=== PATIENT | male | born 1940 | race Caucasian/White ===

== ENCOUNTER 2018-03-10 08:56 | Outpatient (CLI) | payer MEDICARE, OTHER, SELFPAY ==
[2018-03-10 10:14] LABS: Hemoglobin A1C 7.1 % (4.5-6.2)
== END 2018-03-10 09:16 ==
DX: E11.9 Type 2 diabetes mellitus without complications (principal)
CPT/HCPCS: 36415; 83036

== ENCOUNTER 2018-06-09 08:39 | Outpatient (CLI) | payer MEDICARE, OTHER, SELFPAY ==
[2018-06-09 11:26] LABS: Anion Gap 9.3 mmol/L (3-11); BUN 22 mg/dL (7-18); CO2 26.7 mmol/L (21.0-32.0); CREATININE 1.09 mg/dL (0.70-1.30); Calcium 9.2 mg/dL (8.5-10.1); Chloride 102 mmol/L (98-107); Glucose 120 mg/dL (70-100); Potassium 4.2 mmol/L (3.5-5.1); Sodium 138 mmol/L (136-145)
[2018-06-09 11:37] LABS: Hemoglobin A1C 6.7 % (4.5-6.2)
== END 2018-06-09 08:59 ==
DX: E11.9 Type 2 diabetes mellitus without complications (principal); Z87.891 Personal history of nicotine dependence
CPT/HCPCS: 36415; 80048; 83036

== ENCOUNTER 2018-10-25 13:39 | Outpatient (CLI) | payer MEDICARE, OTHER, SELFPAY ==
--- NOTE | 2018-10-25 12:00 | DI.RAD_ITS ---
SYMPTOM/DIAGNOSIS: RT HIP PAIN, M25.551 RIGHT HIP AND PELVIS: Two views were obtained. The cartilaginous joint spaces of both hips appear fairly well maintained. Minimal hypertrophic spurring of the acetabuli noted bilaterally, not unusual in this age group. No additional abnormality is seen involving the hips. Note is made of rounded high density focus measuring about 13 mm. in diameter projected over the right iliac wing and similar high density rounded focuses projected over the left sacral ala. These are nonspecific findings and may lie in bone or overlying soft tissues. If in bone, they are most likely to represent bone islands. The possibility of metastatic disease not absolutely excluded. If clinically indicated, additional evaluation with pelvic CT may be considered to evaluate the location and etiology of these nodular radiodensities.
== END 2018-10-25 13:59 ==
DX: M25.551 Pain in right hip (principal); R93.7 Abnormal findings on diagnostic imaging of other parts of musculoskeletal system
CPT/HCPCS: 73502

== ENCOUNTER 2018-11-24 01:21 | Outpatient (CLI) | payer MEDICARE, OTHER, SELFPAY ==
[2018-11-24] MEDS: Omnipaque 350 MG/ML 100 ML BTL IJ (13:59)
[2018-11-24] MEDS: Normal Saline Flush 10 ML SYR IVP (14:01)
--- NOTE | 2018-11-24 14:01 | DI.CT_ITS ---
EXAM: CT ABDOMEN PELVIS W CLINICAL HISTORY: Rt hip pain, M25.551, F/U Hip XR high density focus - R/O Metastasis. TECHNIQUE: The examination was carried out according to the usual protocol with intravenous administ ration of 100 mL of Omnipaque 350. COMPARISON: Rt hip x-ray 10/25/18 FINDINGS: Regions of dependent atelectasis are noted in the lung bases. The liver appears intact. The patient is status post cholecystectomy. The pancreas and spleen are unremarkable. The kidneys are unremarka ble. The adrenals are intact. There is no evidence of bowel obstruction. There is no evidence of an acute appendix. Scattered diverticula are demonstrated in the sigmoid colon. There is no evidence of diverticulitis. There is no evidence of free fluid or free air in the intraperitoneal space. The yasir dder is intact. Prostate is enlarged. There is no evidence of an aortic aneurysm. Small regions of sc lerosis are noted involving the right ilium and left 1st sacral ala. There are degenerative changes i nvolving the spine. IMPRESSION: Small regions of sclerosis involving the right ilium and left hemisacrum are identified and likely re present bone islands. If there is any further specific clinical question regarding the possibility of metastatic disease in this patient, then further assessment with a radionuclide bone scan is recomme nded.
== END 2018-11-24 01:41 ==
DX: M25.551 Pain in right hip (principal); J98.11 Atelectasis; M89.8X8 Other specified disorders of bone, other site; N40.0 Benign prostatic hyperplasia without lower urinary tract symptoms
CPT/HCPCS: 74177; J3490

== ENCOUNTER 2019-07-01 03:45 | Outpatient (CLI) | payer MEDICARE, OTHER, SELFPAY ==
--- NOTE | 2019-07-01 07:30 | DI.US_ITS ---
EXAM: US CAROTID CLINICAL HISTORY: lightheadedness,CHANGE IN VISION,H53.9. TECHNIQUE: Ultrasound carotids performed using grayscale, color-flow, and spectral Doppler imaging. COMPARISON: No exams were available for comparison FINDINGS: On the right, there is mild calcific plaque seen in the carotid bulb and proximal internal and football pad repairer al carotid arteries. No hemodynamically significant velocity elevation is seen on the right. The ri ght vertebral artery is antegrade. On the left, there is moderate calcific plaque seen in the carotid bulb and proximal internal and ext ernal carotid arteries. Velocity elevations are seen in the internal carotid artery consistent with a 50-69 percent left internal carotid artery stenosis. The left vertebral artery is antegrade. IMPRESSION: 50-69 percent left internal carotid artery stenosis. No hemodynamically significant velocity elevati ons are seen on the right. DATA REPOSITORY:
== END 2019-07-01 04:05 ==
DX: R42 Dizziness and giddiness (principal); H53.8 Other visual disturbances; I65.22 Occlusion and stenosis of left carotid artery
CPT/HCPCS: 93880

== ENCOUNTER 2020-02-14 22:54 | Outpatient (REF) | payer MEDICARE, OTHER, SELFPAY ==
[2020-02-14 22:04] LABS: Calculated LDL 108 mg/dL (<100); Cholesterol 190 mg/dL (<200); HDL Cholesterol 57 mg/dL (40-60); Triglyceride 127 mg/dL (<150)
[2020-02-14 22:05] LABS: ALT 33 U/L (16-63); AST 19 U/L (15-37); Alkaline Phosphatase 59 U/L (46-116); Anion Gap 9.3 mmol/L (3-11); BUN 26 mg/dL (7-18); Bilirubin, Total 0.7 mg/dL (0.2-1.0); CO2 26.7 mmol/L (21.0-32.0); Calcium 9.2 mg/dL (8.5-10.1); Chloride 104 mmol/L (98-107); Glucose 116 mg/dL (74-106); Potassium 4.5 mmol/L (3.5-5.1); Sodium 140 mmol/L (136-145); Total Protein 6.7 g/dL (6.4-8.2)
[2020-02-14 22:11] LABS: Hemoglobin A1C 6.8 % (<5.7)
[2020-02-14 22:18] LABS: ESR 5 mm/hr (1-20)
== END 2020-02-14 23:14 ==
LOC: LBN 22:54
PROVIDERS: Physician Assistant
DX: E11.9 Type 2 diabetes mellitus without complications (principal); E78.5 Hyperlipidemia, unspecified; R00.1 Bradycardia, unspecified; I65.22 Occlusion and stenosis of left carotid artery; R21 Rash and other nonspecific skin eruption
CPT/HCPCS: 80053; 80061; 85652; 83036

== ENCOUNTER 2020-04-26 16:19 | Outpatient (CLI) | payer MEDICARE, OTHER, SELFPAY ==
--- NOTE | 2020-04-26 16:15 | RT.EKG_ITS ---
APPROVED REPORT Exam: Resting ECG Patient Location: O HR:71 bpm ECG Measurements Heart Rate 71 AXIS HI 149 P 67 QRSd 91 QRS 56 QT 402 T 55 QTc 439 Conclusion Sinus rhythm...normal P axis, V-rate 60- 99 Ventricular bigeminy...bigeminy string>4 w/ V complexes Low voltage, extremity leads...all extremity leads <0.5mV
== END 2020-04-26 16:20 | disposition home or self-care (01) ==
LOC: DI.CM 16:20
PROVIDERS: Visit Provider Nurse Practitioner Family
DX: R00.1 Bradycardia, unspecified (principal); R42 Dizziness and giddiness; F17.220 Nicotine dependence, chewing tobacco, uncomplicated

== ENCOUNTER 2020-04-26 16:59 | Emergency (ER) | payer MEDICARE, OTHER, SELFPAY ==
[2020-04-26] VITALS (21 sets, daily range): BP systolic 137–193; BP diastolic 59–102; PULSE 40–84; RESP 11–25; TEMP 36.4–36.6; O2SAT 95–98
--- NOTE | 2020-04-26 17:00 | RT.EKG_ITS ---
APPROVED REPORT Exam: Resting ECG Patient Location: E HR:73 bpm ECG Measurements Heart Rate 73 AXIS NE 151 P 72 QRSd 89 QRS 63 QT 379 T 64 QTc 412 Conclusion Sinus rhythm...normal P axis, V-rate 60- 99 Atrial premature complex...SV complex w/ short R-R interval Low voltage, extremity leads...all extremity leads <0.5mV
[2020-04-26 17:38] LABS: Abs Immature Grans 0.02 10^3/uL (0.0-0.06); Absolute Basophil Count 0.05 10^3/uL (0.0-0.2); Absolute Eosinophil Count 0.17 10^3/uL (0.0-0.7); Absolute Lymphocyte Count 1.36 10^3/uL (1.2-3.4); Absolute Monocyte Count 0.85 10^3/uL (0.1-0.8); Absolute Neutrophil Count 4.75 10^3/uL (1.2-6.7); Basophils % 0.7; Eosinophils % 2.4; HCT 46.5 % (40.0-50.0); HGB 15.3 g/dL (13.5-17.5); Immature Grans % 0.3; Lymphocytes % 18.9; MCH 31.1 pg (27.0-33.0); MCHC 32.9 % (32.0-36.0); MCV 94.5 fL (80-95); MPV 9.5 fL (8.0-11.0); Monocytes % 11.8; Neutrophils % 65.9; Nucleated RBC 0 %; Platelet Count 273 10^3/uL (130-400); RBC 4.92 10^6/uL (4.36-5.78); RDW 13.3 % (11.8-14.1); RDW-SD 46.9 fL
[2020-04-26 17:57] LABS: ALT 30 U/L (16-63); AST 18 U/L (15-37); Alkaline Phosphatase 73 U/L (46-116); Anion Gap 9.9 mmol/L (3-11); BUN 22 mg/dL (7-18); CO2 27.1 mmol/L (21.0-32.0); CREATININE 1.1 mg/dL (0.70-1.30); Calcium 9.2 mg/dL (8.5-10.1); Chloride 101 mmol/L (98-107); Glucose 139 mg/dL (74-106); Magnesium 2.3 mg/dL (1.8-2.4); Sodium 138 mmol/L (136-145); Total Protein 7.5 g/dL (6.4-8.2)
[2020-04-26 18:00] LABS: Troponin I < 0.05 ng/mL (<0.06)
[2020-04-26] MEDS: Lactated Ringers 500 ML IV (18:10)
--- NOTE | 2020-04-26 18:12 | ED.GENADUL_ITS ---
Discharge Plan Disposition Patient Disposition: HOME Condition: Stable Discharge Details Clinical Impression: Lightheadedness, Elevated blood pressure reading Primary Care Provider: Melany Snyder ED Provider: Rod Luna Home Meds and New Rx's Prescriptions: Continued metoprolol tartrate 25 mg tablet 12.5 mg PO BID Qty: 90 RF: 4 Shingrix (PF) 50 mcg/0.5 mL suspension for reconstitution 0.5 ml IM ONCE Qty: 1 RF: 0 triamcinolone acetonide 0.5 % ointment 1 applic TP BID Qty: 15 RF: 1 acetaminophen 500 mg capsule 1,000 mg PO TID PRN PRN (Reason: pain) Qty: 90 RF: 0 propranolol 10 MG tablet 10 mg PO PRN RF: 0 aspirin [Aspirin Low-Strength] 81 MG tablet,chewable 81 mg PO DAILY RF: 0 atorvastatin [Lipitor] 10 mg tablet 10 mg PO HS Qty: 90 RF: 4 Discharge Instructions Instructions: Lightheadedness (ED) Additional Instructions: Please take your blood pressure medication as prescribed. Please drink plenty of fluid to stay hydrated. Allow for plenty of rest. Take off the next couple days and rest. Please follow-up with your primary care physician and records clerk. Call for an appointment. Return to the emergency department immediately for any worsening or new concerning symptoms. Referrals: Melany Snyder, PRODUCT MARKETING INTERN [Primary Care Provider] - Medical Decision Making 615p ??79-year-old male here for days status post second COVID-19 vaccine with lightheadedness that has persisted since this morning. Patient is neurologically intact. Patient notes he has been drinking less fluid than normal and does have dry mucous membranes. I suspect hypovolemia is contributing to his symptoms. I will give him a fluid bolus of LR 500 mL and plan to reassess. Considered arrhythmia. Screening ECG was reviewed and interpreted by me: Sinus rhythm 73 bpm, QTc 412, TX interval 151, nondiagnostic. I did interpret stepdown nurse rhythm strip in the room and patient does have intermittent bigeminy. Ectopic beats are conducted with pulse. Patient is hypertensive on arrival. He is on beta-tanya. Labs reviewed to assess for renal dysfunction or electrolyte abnormalities as well as anemia. Labs nondiagnostic. 850p --patient reassessed: Blood pressure improved. Feeling much better after metoprolol and IV fluid. Patient ambulated around the department without difficulty and with no return of lightheadedness. Plan for discharge with outpatient follow-up with PCP and cardiology. Disposition decision was made weighing the risks and benefits of hospitalization versus outpatient treatment, the risk for further decompensation, and the patient's wishes. The patient was stable and requested discharge. Prior to discharge, my usual and customary return precautions were reviewed with the patient - this included follow-up instructions and reason to return to the emergency department if condition worsens, does not improve as expected, or other new concerns arise. HPI General Mode of arrival: ambulatory . Date/Time Provider Initiated Documentation: 04/26/20 17:28 . Limitations to Documentation: no limitations . Information obtained by: patient . HPI Narrative: 79-year-old male with history of bradycardia, coronary artery disease, diabetes, presents with chief complaint of dizziness. 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 This occurred today around 930 but has persisted. Dizziness was severe around 10 AM. It is still present but now mild. Dizziness described as lightheadedness. He did feel like he was going to lose consciousness this morning. He does not have sensation of vertigo. He denies visual change. No numbness or weakness. He has no nausea or vomiting. No chest pain or shortness of breath. He does note that he received second Covid shot a few days ago. He also notes he has not been drinking as much fluid recently. Related Data Home Medications Medication Instructions Recorded Confirmed aspirin [Aspirin Low-Strength] 81 mg PO DAILY tab-cap 07/28/12 04/26/20 propranolol 10 mg PO PRN 07/28/12 04/26/20 triamcinolone acetonide 0.5 % 1 applic TP BID #15 gm 10/05/18 04/26/20 topical ointment acetaminophen 500 mg capsule 1,000 mg PO TID PRN PRN #90 cap 10/25/18 04/26/20 metoprolol tartrate 25 mg tablet 12.5 mg PO BID #90 tab-cap 09/19/19 04/26/20 varicella-zoster glycoE vacc-[id number] 0.5 ml IM ONCE #1 each 09/19/19 03/19/20 adj(PF) 50 mcg/0.5 mL IM susp, kit atorvastatin 10 mg tablet 10 mg PO HS #90 tab-cap 04/21/20 04/26/20 Previous Rx's Medication Instructions Recorded triamcinolone acetonide 0.5 % 1 applic TP BID #15 gm 10/05/18 topical ointment acetaminophen 500 mg capsule 1,000 mg PO TID PRN PRN #90 cap 10/25/18 metoprolol tartrate 25 mg tablet 12.5 mg PO BID #90 tab-cap 09/19/19 varicella-zoster glycoE vacc-[id number] 0.5 ml IM ONCE #1 each 09/19/19 adj(PF) 50 mcg/0.5 mL IM susp, kit atorvastatin 10 mg tablet 10 mg PO HS #90 tab-cap 04/21/20 Allergies Allergy/AdvReac Type Severity Reaction Status Date / Time No Known Allergies Allergy Verified 04/26/20 16:01 General Stated Complaint: Dizzy/Sync BRIAN: 2 Review of Systems Constitutional Constitutional: Denies body ache(s), Denies fatigue, Denies fever(s) and Reports headache(s) (Mild) Eyes Eyes: Denies loss of vision ENT Ears, Nose, Mouth, and Throat: Denies vertigo, Reports dizziness and Reports headache(s) (Mild) Cardiovascular Cardiovascular: Denies chest pain, Denies syncope and Denies dyspnea Respiratory Respiratory: Denies dyspnea Musculoskeletal Musculoskeletal: Denies abnormal gait and Denies tingling Neurologic Neurologic: Denies abnormal speech, Denies abnormal gait, Denies confusion, Denies vertigo, Reports dizziness, Denies syncope, Reports headache(s) (Mild), Denies lack of coordination, Denies loss of vision, Denies sensory deficit and Denies tingling Psychiatric Psychiatric: Denies confusion Endocrine Endocrine: Denies fatigue [facility] Medical History 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 Carotid artery disease (12/14/13) right CEA TIA 06/2019 LEFT artery stenosis w/vision changes Chemical dermatitis Dermatitis Dermatitis associated with moisture (09/14/17) Diabetes mellitus (02/02/12) Hearing loss Hip pain, right History of tobacco use Chews daily, occasional cigar Hyperlipidemia associated with type 2 diabetes mellitus (07/10/15) Migraine Peptic ulcer H/O perforated ulcer; secondary to ASA Vision disorder Surgical History Fracture, Open Treatment LEFT ANKLE Family History Mother , 79 Diabetes Essential hypertension Cancer Stroke Father , 79 Cancer Sister , 84 Cancer Diabetes Sister , 72 Heart disease Cancer Social History Smoking/Tobacco Use Status: Current-Occasional Smokeless tobacco user: dissolvable tobacco Quit status: has quit before Smoking risk assessment performed?: Yes Alcohol Intake: former Drug use: Never Substance use type: does not use Counseling given: No Counseling provided: none Caregiver/Support person: No Household members: spouse Housing: house Communication Needs: Hard of Hearing Pets and animals: Yes Pets and animals: cat(s) Sexually active: No Do you think of yourself as: straight/heterosexual Current gender identity: female What is your relationship status?: How often do you talk on the phone with friends or family?: once per week How often do you get together with friends or relatives?: decline to answer How often do you attend sikhism or hoahaoism services?: decline to answer Do you belong to any clubs or organized social groups?: decline to answer Panel score (0-1 are the most socially isolated patients): 1 What type of physical activity do you participate in: running Duration: > 90 minutes/day Frequency: 5-6 times per week Maryse/Roman Catholic: Restorationist Special maryse needs: No Seatbelt use: sometimes Helmet use: No Drive intox or ride w/intox ems driver: No Exam Const General: cooperative and no acute distress HENMT Mouth: moist mucous membranes Eyes Conjunctivae: normal conjunctivae Sclera: normal sclerae Neck Neck: trachea midline and supple Resp Auscultation: clear to auscultation bilaterally, no rales, no rhonchi and no wheezes Cardio Jugular venous pressure: no JVD Rate: regular rate and not tachycardic Rhythm: regular rhythm GI Palpation: soft, not firm, no guarding, no masses, not rigid and nontender Skin General skin exam: no rashes or lesions noted Neuro General: patient alert, patient awake, patient oriented x3 and tone normal Cranial Nerves: CN's II-XI intact bilaterally Cognition: normal cognition Speech: speech normal Motor: muscle tone normal throughout, strength 5/5 throughout, no movement abnormalities noted and no pronator drift noted Sensory Exam: no sensory deficits noted Coordination: [id number] test normal and Romberg test normal Extrem General: no edema Psych Appearance: grossly normal Mental Status: mental status grossly normal Speech and Movement: speech and movement normal Course Vital Signs Vital signs: Vital Signs Temperature 36.6 C 04/26/20 17:05 Pulse 70 04/26/20 17:05 Respiratory Rate 17 04/26/20 17:05 Blood Pressure 193/97 H 04/26/20 17:05 Pulse Oximetry 98 04/26/20 17:05 Temperature 36.6 C 04/26/20 17:05 Temperature Source Temporal Artery Scan 04/26/20 17:05 Pulse 70 04/26/20 17:05 Respiratory Rate 15 04/26/20 17:13 Respiratory Effort Non-Labored 04/26/20 17:13 Respiratory Depth Normal 04/26/20 17:13 Respiratory Pattern Normal 04/26/20 17:13 Blood Pressure 193/97 H 04/26/20 17:05 Blood Pressure Position Supine 04/26/20 17:05 Pulse Oximetry 98 04/26/20 17:05 Oxygen Delivery Method Room Air 04/26/20 17:05 Oxygen Flow Rate 0 04/26/20 17:05 Pain Level 5 04/26/20 17:05 Lab/Test Results Lab/Test Results: Laboratory Tests Range/Units 04/26/20 04/26/20 17:10 17:10 WBC (4.4-10.8) 10^3/uL 7.20 RBC (4.36-5.78) 10^6/uL 4.92 Hgb (13.5-17.5) g/dL 15.3 Hct (40.0-50.0) % 46.5 MCV (80-95) fL 94.5 MCH (27.0-33.0) pg 31.1 MCHC (32.0-36.0) % 32.9 RDW (11.8-14.1) % 13.3 Plt Count (130-400) 10^3/uL 273 MPV (8.0-11.0) fL 9.5 Immature Gran % 0.3 Neutrophils % 65.9 Lymphocytes % 18.9 Monocytes % 11.8 Eosinophils % 2.4 Basophils % 0.7 Nucleated RBC % % 0 Absolute Neutrophils (1.2-6.7) 10^3/uL 4.75 Absolute Lymphocytes (1.2-3.4) 10^3/uL 1.36 Absolute Monocytes (0.1-0.8) 10^3/uL 0.85 H Absolute Eosinophils (0.0-0.7) 10^3/uL 0.17 Absolute Basophils (0.0-0.2) 10^3/uL 0.05 Sodium (136-145) mmol/L 138 Potassium (3.5-5.1) mmol/L 4.0 Chloride (98-107) mmol/L 101 Carbon Dioxide (21.0-32.0) mmol/L 27.1 Anion Gap (3-11) mmol/L 9.9 BUN (7-18) mg/dL 22 H Creatinine (0.70-1.30) mg/dL 1.1 Estimated GFR/1.73 m2 (mL/min/1.73m2) >= 60.00 Glucose (74-106) mg/dL 139 H Calcium (8.5-10.1) mg/dL 9.2 Magnesium (1.8-2.4) mg/dL 2.3 Total Bilirubin (0.2-1.0) mg/dL 1.0 AST (15-37) U/L 18 ALT (16-63) U/L 30 Alkaline Phosphatase (46-116) U/L 73 Troponin I (<0.06) ng/mL < 0.05 Total Protein (6.4-8.2) g/dL 7.5 Albumin (3.4-5.0) g/dL 4.0
[2020-04-26] MEDS: Metoprolol 12.5 MG TAB PO (18:35)
[2020-04-26 18:43] LABS: Bilirubin Negative (Negative); Blood Trace-intact (Negative); Clarity Clear (Clear); Glucose Negative (Negative); Ketones Negative (Negative); Leukocyte Esterase Negative (Negative); Nitrite Negative (Negative); Specific Gravity 1.025 (1.005-1.025); Urobilinogen 0.2 EU/dL (Up TO 0.2); pH 5.5 (5-8)
[2020-04-26 18:55] LABS: Bacteria Negative HPF (Negative); C & S Indicated? No; Casts Negative LPF (Negative); Crystals Negative HPF (Negative); Epithelial Cells Rare HPF (Negative); Mucus Negative (Negative); RBC 0-2 HPF (0-2); WBC 0-2 HPF (0-5)
[2020-04-26 20:58] LABS: Troponin I < 0.05 ng/mL (<0.06)
== END 2020-04-26 20:50 | disposition home or self-care (01) ==
PROVIDERS: Emergency Provider Student in an Organized Health Care Education/Training Program
DX: R42 Dizziness and giddiness (principal); E86.1 Hypovolemia; I10 Essential (primary) hypertension
CPT/HCPCS: 36415; 80053; 93005; 96360; 99284; 81003; 81015; 83735; 84484; 85025; 93010; 99285; J3490

== ENCOUNTER 2020-04-30 09:19 | Outpatient (RCR) | payer MEDICARE, OTHER, SELFPAY ==
--- NOTE | 2020-04-30 13:00 | HOLTER_ITS ---
APPROVED REPORT Exam Type: HOLTER MONITOR APPLICATION Reason for Test: lightheadedness and ECG recently jodie/ chauncey Patient Location: O Conclusion This was a 48-hour Holter monitor Predominant rhythm was sinus with an average heart rate of 62. Minimum was 48, maximum 106 There were occasional ventricular ectopic beats, rare couplets. PVCs totaled 4% of total beats There were rare atrial premature beats. There was one 9 beat self-limited atrial run There was no atrial fibrillation, no high-grade AV block, no pauses greater than 3 seconds
== END 2020-05-16 23:59 | disposition home or self-care (01) ==
LOC: RT 09:19
PROVIDERS: Visit Provider Physician Assistant
DX: R42 Dizziness and giddiness (principal); R94.31 Abnormal electrocardiogram [ECG] [EKG]; I49.8 Other specified cardiac arrhythmias
CPT/HCPCS: 93227; 93225; 93226

== ENCOUNTER → 2020-06-01 09:12 | Outpatient (BNVA) | payer MEDICARE, OTHER, SELFPAY | PROVIDERS: Visit Provider Internal Medicine Cardiovascular Disease | DX: I65.22 Occlusion and stenosis of left carotid artery (principal); E11.69 Type 2 diabetes mellitus with other specified complication; E78.5 Hyperlipidemia, unspecified; I10 Essential (primary) hypertension | CPT/HCPCS: 99203; 99213 ==

== ENCOUNTER 2020-09-21 11:35 | Outpatient (CLI) | payer MEDICARE, OTHER, SELFPAY ==
[2020-09-21 13:08] LABS: ALT 25 U/L (16-63); AST 18 U/L (15-37); Alkaline Phosphatase 58 U/L (46-116); Anion Gap 9.9 mmol/L (3-11); BUN 20 mg/dL (7-18); Bilirubin, Total 1.2 mg/dL (0.2-1.0); CO2 26.1 mmol/L (21.0-32.0); Calcium 9.1 mg/dL (8.5-10.1); Chloride 104 mmol/L (98-107); Glucose 119 mg/dL (74-106); Potassium 4.3 mmol/L (3.5-5.1); Sodium 140 mmol/L (136-145); Total Protein 6.6 g/dL (6.4-8.2)
[2020-09-21 13:13] LABS: Hemoglobin A1C 7.4 % (<5.7)
== END 2020-09-21 11:36 | disposition home or self-care (01) ==
LOC: LOS 11:41
DX: E11.69 Type 2 diabetes mellitus with other specified complication (principal); E78.5 Hyperlipidemia, unspecified
CPT/HCPCS: 36415; 80053; 83036

== ENCOUNTER → 2021-03-05 15:46 | Outpatient (CLI) | payer MEDICARE, OTHER, SELFPAY ==
--- NOTE | 2021-03-05 12:15 | DI.RAD_ITS ---
Exam(s) XR RIBS LT W PA LAT CHEST EXAM: XR RIBS LT W PA LAT CHEST CLINICAL HISTORY: rib pain and incr pain w/a deep breath post fall R07.81 PLEURODYNIA. TECHNIQUE: 2D digital imaging was performed. COMPARISON: No exams were available for comparison FINDINGS: Chest x-ray: Heart size normal. Mediastinum not widened. No infiltrates in the right lung. In the left upper lobe there is a nodular density measuring 3 by 1.6 cm, noncalcified. No pleural effusions Left rib cage: There are multiple healing rib fractures. However, there also appear to be a fracture of the lateral aspect the left 6 rib and possibly 7th rib no pneumothorax. IMPRESSION: Left rib fractures old and new, as described above There is a 3 x 1.6 cm noncalcified nodule in the left upper lobe. Recommend follow-up CT scan. DATA REPOSITORY: RADIATION DOSE DELIVERED:
== END ==
DX: R07.81 Pleurodynia (principal); W19.XXXA Unspecified fall, initial encounter; S22.42XA Multiple fractures of ribs, left side, initial encounter for closed fracture
CPT/HCPCS: 71046; 71100

== ENCOUNTER 2021-03-20 00:55 | Outpatient (CLI) | payer MEDICARE, OTHER, SELFPAY ==
--- NOTE | 2021-03-20 08:00 | DI.CT_ITS ---
Exam(s) CT CHEST W EXAM: CT CHEST W CLINICAL HISTORY: 3 x 1.6 cm noncalcified nodule in the Arcenio,R91.1 TECHNIQUE: Imaging Protocol: Axial computed tomography images with coronal and sagittal reformatted images were created and reviewed CONTRAST MATERIAL: Intravenous: Omnipaque 350 Contrast volume:70 ml. COMPARISON: CR XR RIBS LT W PA LAT CHEST from 03/05/2021 FINDINGS: Tracheobronchial tree: No bronchiectasis or mucous plugging. Mediastinum and Rashmi: No dominant adenopathy or fluid collection. Pulmonary parenchyma: No consolidation or dominant measurable mass. Pleura: No effusion or pneumothorax. Heart: The heart is not dilated. coronary artery calcifications are seen. Aorta: Thoracic aorta non-dilated. Upper abdomen: Status post cholecystectomy. Lymph nodes: Within normal limits. Bones: Old left upper rib deformities which likely account for the perceived density on recent chest x-ray. Subacute appearing fracture of the anterior 5th through 7th ribs. Flowing osteophytes are no lizzy in the thoracic spine. Soft tissues: Unremarkable. IMPRESSION: Old left upper rib fractures including deformity of the anterior aspect of the 1st rib account for de nsity on recent chest x-ray. There is no evidence of mass. RADIATION DOSE DELIVERED: 481.71mGy.cm Total DLP DATA REPOSITORY: All CT scans at this facility are submitted to the National Radiology Data Registry (NRDR) Dose Index Registry (DIR) with the [employer] (A[employer]). RADIATION OPTIMIZATION: All CT scans at this facility use at least one of these dose optimization te chniques: automated exposure control; mA and/or kV adjustment per patient size (includes targeted exa ms where dose is matched to clinical indication); or iterative reconstruction.
[2021-03-20 14:05] LABS: ALT 24 U/L (16-63); AST 19 U/L (15-37); Albumin 4.1 g/dL (3.4-5.0); Alkaline Phosphatase 94 U/L (46-116); Anion Gap 6.2 mmol/L (3-11); BUN 22 mg/dL (7-18); Bilirubin, Total 0.9 mg/dL (0.2-1.0); CO2 29.8 mmol/L (21.0-32.0); CREATININE 1.2 mg/dL (0.70-1.30); Calcium 9.1 mg/dL (8.5-10.1); Chloride 101 mmol/L (98-107); Estimated GFR 57.96 (mL/min/1.73m2); Glucose 139 mg/dL (74-106); Potassium 3.9 mmol/L (3.5-5.1); Sodium 137 mmol/L (136-145); Total Protein 7.4 g/dL (6.4-8.2)
[2021-03-20] MEDS: Omnipaque 350 MG/ML 100 ML BTL IJ (14:47)
== END 2021-03-20 01:15 ==
DX: R91.1 Solitary pulmonary nodule (principal); R07.81 Pleurodynia; M95.4 Acquired deformity of chest and rib; Z87.81 Personal history of (healed) traumatic fracture
CPT/HCPCS: 80053; 71260; J3490

== ENCOUNTER 2021-09-17 14:45 | Emergency (ER) | payer MEDICARE, OTHER, SELFPAY ==
[2021-09-17 14:52] VITALS: BP 183/78; PULSE 65; RESP 16; TEMP 36.7; O2SAT 98
--- NOTE | 2021-09-17 15:42 | W.ED.GENAD ---
Discharge Plan Disposition Patient Disposition: HOME Condition: Stable Discharge Details Clinical Impression: Radiculopathy of arm, Chronic pain in right shoulder, Paresthesias in right hand Primary Care Provider: Melany Snyder ED Provider: Michelle Ferris Home Meds and New Rx's Prescriptions: Continued Shingrix (PF) 50 mcg/0.5 mL suspension for reconstitution 0.5 ml IM ONCE Qty: 1 0RF Rx Instructions: as a single dose triamcinolone acetonide 0.5 % ointment 1 applic TP BID Qty: 15 1RF Rx Instructions: Apply thin layer to bilateral hand rash two times per day. acetaminophen 500 mg capsule 1,000 mg PO TID PRN PRN (Reason: pain) Qty: 90 0RF propranolol 10 MG tablet 10 mg PO PRN Label Comments: takes for migraines Rx Instructions: FOR MIGRAINE H/A aspirin [Aspirin Low-Strength] 81 MG tablet,chewable 81 mg PO DAILY metoprolol tartrate 25 mg tablet 12.5 mg PO BID Qty: 90 4RF atorvastatin [Lipitor] 10 mg tablet 10 mg PO HS Qty: 90 4RF Discharge Instructions Instructions: Paresthesia (ED), Cervical Radiculopathy (ED), Shoulder Pain (ED) Additional Instructions: Your symptoms appear most likely consistent with a possible nerve injury or compression, possibly coming from your neck. An order for an outpatient cervical spine MRI has been placed. You will be contacted by the radiology department regarding scheduling of this test. You can attempt to limit use of your right arm and hand and limit laying on your right side when sleeping to see if this alleviates any of the symptoms. Alternate tylenol and motrin as needed and directed for pain. You have been placed on care management list to arrange for a follow-up appointment with your primary care doctor's office for reevaluation and results of her cervical spine MRI once available. Return immediately to the emergency department if you develop any worsening or new concerning symptoms. Discharge Data Discharge Date/Time-TO BE ENTERED AT DEPARTURE: 09/17/21 16:06 Discharge Physician: Michelle Ferris Medical Decision Making 81-year-old male with a history of TIA and right carotid endarterectomy presents after referred from the [facility] for intermittent right hand and forearm tingling and numbness with right shoulder pain for the past month. Blood pressure hypertensive at 183/78 on arrival. Remainder of vitals within normal limits. Patient appears comfortable and nontoxic and currently has no acute complaints. Patient states he sleeps mainly on his right side and when he awakes he noticed his tingling in his entire hand extending up to his right forearm. He also states he is currently still working and is frequently using instruments with his right hand. He also admits to occasional pain in his right shoulder. He has no other strokelike symptoms. During my examination, he complains of tingling only in his right index finger. He has no focal deficits on exam and motor and sensory are grossly intact. Negative Tinel's and Phalen's sign. As he endorses pain in his right shoulder with intermittent tingling that is usually position dependent, history and presentation does not appear consistent with CVA, meningitis or ACS and do not feel indication for lab work or imaging at this time the patient is agreeable. Symptoms and case discussed with Dr. Astorga who agrees cervical spine MRI is appropriate test for location of patient's symptoms. Suspect most likely cervical radiculopathy. Also consider other peripheral neuropathy or palsy. We will hold on treating with steroids or neuropathic medication at this time. Patient is advised to alternate Tylenol and Motrin, limit use of his right hand and limit laying on his right side while sleeping. An order for an outpatient cervical spine MRI was placed. Pt also placed on care management's list to arrange for a follow up appointment with his primary care provider for re-evaluation and results of his cervical spine MRI. Usual and customary return precautions given prior to discharge. Medical Records Medical records reviewed: Yes I reviewed the patient's medical records. HPI General Mode of arrival: ambulatory. Date/Time Provider Initiated Documentation: 09/17/21 15:11. Limitations to Documentation: no limitations. Information obtained by: patient. HPI Narrative: Patient is an 81-year-old male with a history of TIA with carotid endarterectomy, diabetes, hyperlipidemia presents with intermittent right hand and forearm tingling and numbness for the past 4 weeks. He denies any weakness in his right upper extremity. He does admit to occasional pain in his right shoulder. He states he frequently sleeps on his right side and awakes with symptoms but they resolve throughout the day. He denies any known specific injury. He denies headache, neck pain, chest pain, shortness of breath, blurry vision, slurred speech, or other extremity numbness or weakness. Due to patient's age and history, he was reportedly sent here from [facility] for further evaluation. Related Data Home Medications Medication Instructions Recorded Confirmed aspirin 81 mg chewable tablet 81 mg PO DAILY 07/28/12 09/17/21 (Aspirin Low-Strength) propranolol 10 mg tablet 10 mg PO PRN 07/28/12 09/17/21 triamcinolone acetonide 0.5 % 1 applic topical BID #15 grams 10/05/18 09/17/21 topical ointment acetaminophen 500 mg capsule 1,000 mg PO TID PRN PRN pain #90 10/25/18 09/17/21 caps varicella-zoster glycoE [id number] 0.5 ml IM ONCE #1 ea 09/19/19 09/17/21 adj(PF) 50 mcg/0.5 mL IM susp, kit (Shingrix (PF)) metoprolol tartrate 25 mg tablet 12.5 mg PO BID #90 tab-caps 10/25/20 09/17/21 atorvastatin 10 mg tablet (Lipitor) 10 mg PO HS #90 tab-caps 04/30/21 09/17/21 Previous Rx's Medication Instructions Recorded triamcinolone acetonide 0.5 % 1 applic topical BID #15 grams 10/05/18 topical ointment acetaminophen 500 mg capsule 1,000 mg PO TID PRN PRN pain #90 10/25/18 caps varicella-zoster glycoE [id number] 0.5 ml IM ONCE #1 ea 09/19/19 adj(PF) 50 mcg/0.5 mL IM susp, kit (Shingrix (PF)) metoprolol tartrate 25 mg tablet 12.5 mg PO BID #90 tab-caps 10/25/20 atorvastatin 10 mg tablet (Lipitor) 10 mg PO HS #90 tab-caps 04/30/21 Allergies Allergy/AdvReac Type Severity Reaction Status Date / Time No Known Allergies Allergy Verified 09/17/21 14:55 General Stated Complaint: Orthopedic BRIAN: 4 Review of Systems All systems reviewed & are unremarkable except as noted in HPI and below Constitutional Constitutional: Denies chills, Denies excessive sweating, Denies fatigue, Denies fever(s), Denies weakness and Denies weight loss Eyes Eyes: Reports system reviewed and no additional complaints, except as documented and Denies blurry vision ENT Ears, Nose, Mouth, and Throat: Denies vertigo, Denies dizziness, Denies otalgia, Denies nasal congestion, Denies sore throat and Denies throat swelling Cardiovascular Cardiovascular: Denies chest pain, Denies syncope, Denies rapid heart rate and Denies dyspnea Respiratory Respiratory: Denies chest congestion, Denies cough, Denies pain on inspiration and Denies dyspnea Gastrointestinal Gastrointestinal: Denies abdominal pain, Denies diarrhea and Denies vomiting Genitourinary Genitourinary: Denies hematuria, Denies dysuria and Denies flank pain Musculoskeletal Musculoskeletal: Denies back pain, Denies joint swelling, Reports numbness and Reports tingling Integumentary/Breasts Skin/Breast: Denies lesions and Denies rash Neurologic Neurologic: Denies behavioral changes, Denies confusion, Denies vertigo, Denies dizziness, Denies syncope, Denies localized weakness, Reports numbness, Reports tingling and Denies weakness Psychiatric Psychiatric: Denies behavioral changes, Denies confusion and Denies depression Endocrine Endocrine: Denies excessive sweating and Denies fatigue Hematologic/Lymphatic Hematologic/Lymphatic: Denies easy bruising and Denies lymphadenopathy Allergic/Immunologic Allergic/Immunologic: Denies throat swelling PFSH All Active Problems (Updated 09/17/21 @ 15:55 by Michelle Ferris DO) Radiculopathy of arm (Acute) Chronic pain in right shoulder (Acute) Paresthesias in right hand (Acute) Recurrent falls (Acute) Nodule of upper lobe of left lung (Acute) Incidental finding on XR to evaluate for rib fractures - CT ordered Rib pain on left side (Acute) Advanced directives, counseling/discussion (Acute) 10/03/20 - no heroics but unable to describe what that means. Has forms - encouraged to f/u Encounter for annual physical exam (Acute) Knee buckling (Acute) left Lightheadedness (Acute) Elevated blood pressure reading (Acute) Rash (Acute) Vision disorder (Acute) Bradycardia with 31-40 beats per minute (Acute) Dermatitis (Acute) Hip pain, right (Acute) Ankle ankylosis (Acute) History of open reduction and internal fixation (ORIF) procedure (Acute) Carotid artery disease (Acute 12/14/13) 01/23/2011: right CEA TIA 06/2019 LEFT artery stenosis w/vision changes Diabetes mellitus (Chronic 02/02/12) Hearing loss (Chronic) History of tobacco use (Chronic) Chews daily, occasional cigar Hyperlipidemia associated with type 2 diabetes mellitus (Chronic 07/10/15) Migraine (Chronic) Peptic ulcer (Chronic) H/O perforated ulcer; secondary to ASA Medical History Chemical dermatitis Dermatitis associated with moisture (09/14/17) Surgical History Fracture, Open Treatment LEFT ANKLE Family History Mother , 79 Diabetes Essential hypertension Cancer Stroke Father , 79 Cancer Sister , 84 Cancer Diabetes Sister , 72 Heart disease Cancer Social History Smoking/Tobacco Use Status: Current-Occasional Tobacco Type: cigars Smokeless tobacco user: dissolvable tobacco Quit status: has quit before Smoking risk assessment performed?: Yes Alcohol Intake: former Drug use: Never Substance use type: does not use Counseling given: No Counseling provided: none Caregiver/Support person: No Household members: spouse Communication Needs: Hard of Hearing Pets and animals: Yes Pets and animals: cat(s) Sexually active: No Do you think of yourself as: straight/heterosexual Current gender identity: male What is your relationship status?: How often do you talk on the phone with friends or family?: twice per week How often do you get together with friends or relatives?: three or more times per week How often do you attend sabianism or gnosticist services?: decline to answer Do you belong to any clubs or organized social groups?: no Panel score (0-1 are the most socially isolated patients): 2 What type of physical activity do you participate in: walking and running Duration: 60-90 minutes/day Frequency: 5-6 times per week Maryse/Zoroastrianism: No preference Special maryse needs: No Seatbelt use: sometimes Drive intox or ride w/intox funeral car driver: No Do you feel safe at home: Yes Do you feel safe in your relationship?: Yes Exam Const General: cooperative and healthy appearing Orientation: alert, awake and oriented x3 HENMT Head: normal to inspection Ears: hearing grossly normal bilaterally and external ears normal General nose exam: external nose normal Face and sinus: normal facial exam Mouth: oral mucosae normal Teeth and gingiva: dentition normal Throat: posterior oropharynx normal Eyes General: appearance normal, both eyes and all related structures Eyelids: eyelids normal Pupils: PERRL EOM: EOM intact bilaterally Neck Neck: normal visual inspection Lymphatic: no lymphadenopathy noted Chest Chest: normal inspection of the chest Resp Effort & Inspection: normal respiratory effort and able to speak in complete sentences Auscultation: clear to auscultation bilaterally Cardio Rate: regular rate Rhythm: regular rhythm GI Inspection: normal to inspection Palpation: soft, not firm, no guarding, no hepatosplenomegaly, no masses and nontender Auscultation: normal bowel sounds Back/Spine/Pelvis Back: no CVA tenderness Skin General skin exam: no rashes or lesions noted Neuro General: patient alert, patient awake, patient oriented x3, gait normal, moves all extremities, no meningeal signs and no focal motor deficits Cranial Nerves: CN's II-XI intact bilaterally Cognition: normal cognition Speech: speech normal Gait: normal gait Motor: muscle tone normal throughout and strength 5/5 throughout Sensory Exam: no sensory deficits noted Extrem General: normal to inspection, full ROM and capillary refill normal Psych Appearance: grossly normal Mental Status: mental status grossly normal Speech and Movement: speech and movement normal Affect: normal affect Thought Process: normal Course Vital Signs Vital signs: Vital Signs Temperature 98.1 F 09/17/21 14:52 Pulse 65 09/17/21 14:52 Respiratory Rate 16 09/17/21 14:52 Blood Pressure 183/78 H 09/17/21 14:52 Pulse Oximetry 98 09/17/21 14:52 Temperature 98.1 F 09/17/21 14:52 Temperature Source Temporal Artery Scan 09/17/21 14:52 Pulse 65 09/17/21 14:52 Respiratory Rate 16 09/17/21 14:52 Respiratory Effort Non-Labored 09/17/21 14:54 Blood Pressure 183/78 H 09/17/21 14:52 Blood Pressure Position Sitting 09/17/21 14:52 Pulse Oximetry 98 09/17/21 14:52 Oxygen Delivery Method Room Air 09/17/21 14:52 Oxygen Flow Rate 0 09/17/21 14:52 Pain Level 0 09/17/21 14:52
--- NOTE | 2021-09-17 18:44 | NUR.NOTE ---
patient needing care management follow up for right arm tingling p/Dr. Ferris. CLB
== END 2021-09-17 16:06 | disposition home or self-care (01) ==
PROVIDERS: Emergency Provider Physician Assistant
DX: M54.10 Radiculopathy, site unspecified (principal); M25.511 Pain in right shoulder; G89.29 Other chronic pain; R20.2 Paresthesia of skin
CPT/HCPCS: 99282

== ENCOUNTER → 2021-10-10 00:41 | Outpatient (CLI) | payer MEDICARE, OTHER, SELFPAY ==
--- NOTE | 2021-10-10 | DI.MRI_ITS ---
Exam(s) MR CERVICAL SPINE WO EXAM: MR CERVICAL SPINE WO CLINICAL HISTORY: RT UPPER EXT PAIN, RT HAND TINGLING AND NUMBNESS. TECHNIQUE: Multiplanar multisequence MRI was performed. COMPARISON: No exams were available for comparison FINDINGS: MR examination of the cervical spine was performed according to the usual protocol. Images obtained through the posterior fossa show no specific abnormality. There is somewhat heterogeneous bony signal of the cervical spine which is nonspecific. There is a m inimal anterior wedging deformity of the vertebral body of T1 which appears to be chronic. There is prominence of the disc osteophyte complex at multiple levels throughout the cervical spine. There are no significant findings at C2-3. At C3-4, there is mild prominence of the disc osteophyte complex. There is narrowing of the left tk ral foramen. Right neural foramen and central spinal canal appear well maintained. At C4-5, there is marked prominence of the disc osteophyte complex. There is borderline central anya l spinal stenosis. There is left lateral recess stenosis. There is left-sided neural foraminal sten osis. At C5-6, there is prominence of the disc osteophyte complex. No disc herniation, central canal spina l stenosis. There is bilateral neural foraminal stenosis. At C6-7, there is prominence of the disc osteophyte complex without central canal spinal stenosis. T here is right lateral recess stenosis and there is bilateral neural foraminal stenosis. At C7-T1, there is mild prominence of the disc osteophyte complex. No central canal spinal stenosis, neural foraminal stenosis, or disc herniation. IMPRESSION: Multilevel degenerative findings as described above, multilevel neural foraminal stenosis. Please se e above discussion for findings at individual levels and correlate with neurologic examination. DATA REPOSITORY:
== END ==
PROVIDERS: Visit Provider Physician Assistant
DX: M79.621 Pain in right upper arm (principal); R20.0 Anesthesia of skin; R20.2 Paresthesia of skin; M25.78 Osteophyte, vertebrae; M48.02 Spinal stenosis, cervical region
CPT/HCPCS: 72141

== ENCOUNTER 2022-04-15 10:37 | Outpatient (CLI) | payer MEDICARE, OTHER, SELFPAY ==
--- NOTE | 2022-04-15 10:30 | RT.EKG_ITS ---
APPROVED REPORT Exam: Resting ECG Reason for Exam: dizziness Patient Location: O HR:65 bpm ECG Measurements Heart Rate 65 AXIS HI 159 P 65 QRSd 88 QRS 43 QT 381 T 25 QTc 397 Conclusion Sinus rhythm...normal P axis, V-rate 50- 99 Borderline low voltage, extremity leads...all extremity leads <0.6mV Otherwise normal
== END 2022-04-15 10:38 | disposition home or self-care (01) ==
LOC: DI.CM 10:39
PROVIDERS: PCP Nurse Practitioner Family; Visit Provider Nurse Practitioner Family
DX: R42 Dizziness and giddiness (principal)
CPT/HCPCS: 93010

== ENCOUNTER → 2023-03-24 14:35 | Outpatient (CLI) | payer MEDICARE, SELFPAY ==
--- NOTE | 2023-03-24 14:00 | DI.RAD_ITS ---
Exam(s) XR KNEE LT 3V AP,LAT,MAURO EXAM: XR KNEE LT 3V AP,LAT,MAURO CLINICAL HISTORY: increased pain despite RICE, atraumatic, lt knee pain, M25.562. TECHNIQUE: 2D digital imaging was performed. Three views. COMPARISON: No exams were available for comparison FINDINGS: BONES: No acute fracture is present. No bony destructive lesion is seen. JOINTS: The knee is normally aligned. No joint effusion is seen. Joint spaces are maintained. Efrain drocalcinosis. SOFT TISSUE: Vascular calcifications. IMPRESSION: Chondrocalcinosis. DATA REPOSITORY: RADIATION DOSE DELIVERED:
--- OUTSIDE RECORDS SUMMARY | 2023-03-24 14:37 | XMS_ITS | Continuity of Care Document ---
Author Name Unknown Organization [facility] Address [address] [place] [address] Encounter [facility] Date(s): 08/09/22 - 08/09/22 [facility] [address] [place] [address] Discharge Disposition: Home or Self Care Attending Physician: Paolo Sauceda MD Admitting Physician: Paolo Sauceda MD Allergies, Adverse Reactions, Alerts No Known Medication Allergies Assessment and Plan Extracted from: Title:Clinical Document Author:Rustam Lara Date:08/09/22 Diagnosis: Tick bite Comment: Functional Status 08/09/22 Other exposure to Infectious Disease Non e Immunizations Given and Recorded Vaccine Date Status Refusal Reason tetanus/diphth/pertuss (Tdap) adult/adol 02/17/18 Recorded Mental Status 08/09/22 Eye Opening Response [place] Spontaneous ly Best Verbal Response Hong Oriented Best Motor Response Hong Obeys comman ds [place] Coma Score 15 Vital Signs Most recent to oldest [Reference Range]: 1 Temperature Temporal Artery [36-38 Deg C ] 36.2 Deg C (08/09/22 6:33 PM) Peripheral Pulse Rate [60-100 bpm] 71 bp m (08/09/22 6:33 PM) Respiratory Rate [12-24 br/min] 18 br/mi n (08/09/22 6:33 PM) Blood Pressure [90-140/60-90 mmHg] 160/6 5mmHg *HI* (08/09/22 6:33 PM) Weight Dosing 72.57 kg (08/09/22 6:37 PM) Weight Estimated 72.57 kg (08/09/22 6:33 PM) Height/Length Dosing 170.000 cm (08/09/22 6:37 PM) Height/Length Estimated 170.000 cm (08/09/22 6:33 PM) Social History Social History Type Response Tobacco Current everyday tob acco user Tobacco Use:. 1 cigar per day per day. Sex Male Hospital Discharge Instructions Patient Education 08/09/2022 17:47:50 Tick Bite Information, Adult, [id number] Tick Bite Information, Adult Ticks are insects that can bite. Most ticks live in shrubs and grassy areas. They climb onto peopleand animals that go by. Then they bite. Some ticks carry germs that can make you sick. How can I prevent tick bites? Take these steps: Use insect repellent ??? Use an insect repellent that has 20% or higher of the ingredients DEET, picaridin, or [id number]. Follow the instructions on the label. Put it on: ??? Bare skin. ??? The tops of your boots. ??? Your pant legs. ??? The ends of your sleeves. ??? If you use an insect repellent that has the ingredient permethrin, follow the instructions on the label. Put it on: ??? Clothing. ??? Boots. ??? Supplies or outdoor gear. ??? Tents. When you are outside ??? Wear long sleeves and long pants. ??? Wear light-colored clothes. ??? Tuck your pant legs into your socks. ??? Stay in the middle of the trail. Do not touch the bushes. ??? Avoid walking through long grass. ??? Check for ticks on your clothes, hair, and skin often while you are outside. Before going inside your house, check your clothes, skin, head, neck, armpits, waist, groin, and joint areas. When you go indoors ??? Check your clothes for ticks. Dry your clothes in a dryer on high heat for 10 minutes or more. If clothes are damp, additional time may be needed. ??? Wash your clothes right away if they need to be washed. Use hot water. ??? Check your pets and outdoor gear. ??? Shower right away. ??? Check your body for ticks. Do a full body check using a mirror. What is the right way to remove a tick? Remove the tick from your skin as soon as possible. Do not remove the tick with your bare fingers. ??? To remove a tick that is crawling on your skin: ??? Go outdoors and brush the tick off. ??? Use tape or a lint roller. ??? To remove a tick that is bitin. Wash your hands. 2. If you have latex gloves, put them on. 3. Use tweezers, curved forceps, or a tick-removal tool to grasp the tick. Grasp the tick as close to your skin and as close to the tick's head as possible. 4. Gently pull up until the tick lets go. ??? Try to keep the tick's head attached to its body. ??? Do not twist or jerk the tick. ??? Do not squeeze or crush the tick. Do not try to remove a tick with heat, alcohol, petroleum jelly, or fingernail vietnamese. What should I do after taking out a tick? Throw away the tick. Do not crush a tick with your fingers. ??? Clean the bite area and your hands with soap and water, rubbing alcohol, or an iodine wash. ??? If an antiseptic cream or ointment is available, apply a small amount to the bite area. ??? Wash and disinfect any instruments that you used to remove the tick. How should I get rid of a live tick? To dispose of a live tick, use one of these methods: ??? Place the tick in rubbing alcohol. ??? Place the tick in a bag or container you can close tightly. ??? Wrap the tick tightly in tape. ??? Flush the tick down the toilet. Contact a doctor if: ??? You have symptoms, such as: ??? A fever or chills. ??? A red rash that makes a [place] (bull's-eye rash) in the bite area. ??? Redness and swelling where the tick bit you. ??? Headache. ??? Pain in a muscle, joint, or bone. ??? Being more tired than normal. ??? Trouble walking or moving your legs. ??? Numbness in your legs. ??? Tender and swollen lymph glands. ??? A part of a tick breaks off and gets stuck in your skin. Get help right away if: ??? You cannot remove a tick. ??? You cannot move (have paralysis) or feel weak. ??? You are feeling worse or have new symptoms. ??? You find a tick that is biting you and filled with blood. This is important if you are in an area where diseases from ticks are common. Summary ??? Ticks may carry germs that can make you sick. ??? To prevent tick bites wear long sleeves, long pants, and light colors. Use insect repellent. Follow the instructions on the label. ??? If the tick is biting, do not try to remove it with heat, alcohol, petroleum jelly, or fingernail vietnamese. ??? Use tweezers, curved forceps, or a tick-removal tool to grasp the tick. Gently pull up until the tick lets go. Do not twist or jerk the tick. Do not squeeze or crush the tick. ??? If you have symptoms, contact a doctor. This information is not intended to replace advice given to you by your health care provider. Make sure you discuss any questions you have with your health care provider. Document Revised: 01/30/2020 Document Reviewed: 01/30/2020 [employer] Patient Education ?? 2021 [employer]. 08/09/2022 17:47:48 Tick Bite Information, Adult Tick Bite Information, Adult Ticks are insects that draw blood for food. Most ticks live in shrubs and grassy and wooded areas. They climb onto people and animals that brush against the leaves and grasses that they rest on. Thenthey bite, attaching themselves to the skin. Most ticks are harmless, but some ticks may carry germs that can spread to a person through a bite and cause a disease. To reduce your risk of getting a di sease from a tick bite, make sure you: ??? Take steps to prevent tick bites. ??? Check for ticks after being outdoors where ticks live. ??? Watch for symptoms of disease if a tick attached to you or if you suspect a tick bite. How can I prevent tick bites? Take these steps to help prevent tick bites when you go outdoors in an area where ticks live: Use insect repellent ??? Use insect repellent that has DEET (20% or higher), picaridin, or [id number] in it. Follow the instructions on the label. Use these products on: ??? Bare skin. ??? The top of your boots. ??? Your pant legs. ??? Your sleeve cuffs. ??? For insect repellent that contains permethrin, follow the instructions on the label. Use these products on: ??? Clothing. ??? Boots. ??? Outdoor gear. ??? Tents. When you are outside ??? Wear protective clothing. Long sleeves and long pants offer the best protection from ticks. ??? Wear light-colored clothing so you can see ticks more easily. ??? Tuck your pant legs into your socks. ??? If you go walking on a trail, stay in the middle of the trail so your skin, hair, and clothing do not touch the bushes. ??? Avoid walking through areas with long grass. ??? Check for ticks on your clothing, hair, and skin often while you are outside, and check again before you go inside. Make sure to check the scalp, neck, armpits, waist, groin, and joint areas. These are the spots where ticks attach themselves most often. When you go indoors ??? Check your clothing for ticks. Tumble dry clothes in a dryer on high heat for at least 10 minutes. If clothes are damp, additional time may be needed. If clothes require washing, use hot water. ??? Examine gear and pets. ??? Shower soon after being outdoors. ??? Check your body for ticks. Conduct a full body check using a mirror. What is the proper way to remove a tick? If you find a tick on your body, remove it as soon as possible. Removing a tick sooner can prevent germs from passing to your body. Do not remove the tick with your bare fingers. To remove a tick that is crawling on your skin but has not bitten, use either of these methods: ??? Go outdoors and brush the tick off. ??? Remove the tick with tape or a lint roller. To remove a tick that is attached to your skin: 1. Wash your hands. If you have latex gloves, put them on. 2. Use fine-tipped tweezers, curved forceps, or a tick-removal tool to gently grasp the tick as close to your skin and the tick's head as possible. 3. Gently pull with a steady, upward, even pressure until the tick lets go. 4. When removing the tick: ??? Take care to keep the tick's head attached to its body. ??? Do not twist or jerk the tick. This can make the tick's head or mouth parts break off and remain in the skin. ??? Do not squeeze or crush the tick's body. This could force disease-carrying fluids from the tickinto your body. Do not try to remove a tick with heat, alcohol, petroleum jelly, or fingernail vietnamese. Using these methods can cause the tick to salivate and regurgitate into your bloodstream, increasing your risk of getting a disease. What should I do after removing a tick? Dispose of the tick. Do not crush a tick with your fingers. ??? Clean the bite area and your hands with soap and water, rubbing alcohol, or an iodine scrub. ??? If an antiseptic cream or ointment is available, apply a small amount to the bite site. ??? Wash and disinfect any instruments that you used to remove the tick. How should I dispose of a tick? To dispose of a live tick, use one of these methods: ??? Place it in rubbing alcohol. ??? Place it in a sealed bag or container. ??? Wrap it tightly in tape. ??? Flush it down the toilet. Contact a health care provider if: ??? You have symptoms of a disease after a tick bite. Symptoms of a tick-borne disease can occur from moments after the tick bites to 30 days after a tick is removed. Symptoms include: ??? Fever or chills. ??? Any of these signs in the bite area: ??? A red rash that makes a [place] (bull's-eye rash) in the bite area. ??? Redness and swelling. ??? Headache. ??? Muscle, joint, or bone pain. ??? Abnormal tiredness. ??? Numbness in your legs or difficulty walking or moving your legs. ??? Tender, swollen lymph glands. ??? A part of a tick breaks off and gets stuck in your skin. Get help right away if: ??? You are not able to remove a tick. ??? You experience muscle weakness or paralysis. ??? Your symptoms get worse or you experience new symptoms. ??? You find an engorged tick on your skin and you are in an area where disease from ticks is a high risk. Summary ??? Ticks may carry germs that can spread to a person through a bite and cause a disease. ??? Wear protective clothing and use insect repellent to prevent tick bites. Follow the instructions on the label. ??? If you find a tick on your body, remove it as soon as possible. If the tick is attached, do nottry to remove with heat, alcohol, petroleum jelly, or fingernail vietnamese. ??? Remove the attached tick using fine-tipped tweezers, curved forceps, or a tick-removal tool. Gently pull with steady, upward, even pressure until the tick lets go. Do not twist or jerk the tick. Do not squeeze or crush the tick's body. ??? If you have symptoms of a disease after being bitten by a tick, contact a health care provider. This information is not intended to replace advice given to you by your health care provider. Make sure you discuss any questions you have with your health care provider. Document Revised: 01/30/2020 Document Reviewed: 01/30/2020 [employer] Patient Education ?? 2021 [employer]. Physician Emergency department Note * Paolo Sauceda MD: PERFORM Event Display: ED Note Physician Authored Date: [id number] JBE REYNA :1940 Age:82 years Sex:Male Visit Date:08/09/2022 Basic Information Time Seen: Paolo Sauceda MD / 08/09/2022 18:40 Chief Complaint found tick to lower abdomen today, states its been on there a while thought it was a blood blister.patient pulled tick off and brought it in a bag History Of Present Illness: Presenting concern is tick bite.?? Patient had??bite??in perineal area??x2 days. Review of Systems: Negative for fever, myalgias. Physical Exam Vitals & Measurements T:??36.2?C ??(Temporal Artery)?? HR:??71??(Peripheral)?? RR:??18?? BP:??160/65?? SpO2:??96%?? HT:??170.000??cm?? WT:??72.57??kg??(Estimated)?? O2 Therapy:??Room air?? Mildly inflamed area around bite site.?? Examination of??culprit tic??demonstrates black legs??but no other morphology consistent with??a deer tick. Medical Decision Making: Problem complexity is straightforward. ??Data complexity straightforward. ??Management risk are low.?? [facility] [place] [address]. Procedure No Qualifying Data Assessment/Plan Ordered: doxycycline monohydrate, 200 mg = 2 cap, Oral, Cap, Daily for 5 days, Antibiotic Indication Other (specify in order comments), First Dose: 08/09/22 18:47:00 EDT, Stop Date: 08/14/22 8:59:00 EDT, Physician Stop, STAT Discharge Patient, 08/09/22 18:48:00 EDT, Home Independently, Constant Indicator Diagnosis is tick bite, possible??deer tick. Patient Education Tick Bite Information, Adult, [id number] Tick Bite Information, Adult Problem List/Past Medical History Ongoing No qualifying data Historical No qualifying data Allergies No Known Medication Allergies Social History Electronic Cigarette/Vaping Electronic Cigarette Use: Never. Tobacco Current everyday tobacco user Tobacco Use:. 1 cigar per day per day. Electronically Signed on 08/09/22 06:48 PM Paolo Sauceda MD Emergency department Discharge instructions * Paolo Sauceda MD: PERFORM Event Display: ED Discharge Information Authored Date: [id number] JEB REYNA :1940 Age:82 years Sex:Male Visit Date:08/09/2022 Discharge Instructions We would like to thank you for allowing us to assist you with your healthcare needs. The following includes patient education materials and information regarding your injury/illness. Discharge Vitals Temperature??(Temporal Artery) 97.2 ??F (36.2 ??C) Heart Rate??(Peripheral) 71 Respiratory Rate?? 18 Blood Pressure?? 160/65?? Height?? 66.93 in (170.000 cm) Weight??(Estimated) 160.02 lb (72.57 kg) Allergies No Known Medication Allergies What to Do Next Instructions from Your Care Team Review tick bite instructions. You were treated today on an emergency basis; it may be villafana to contact your primary care provider to notify them of your visit today. You may have been referred to your regular doctor or a specialist, please follow up as instructed. If your condition worsens or you can't get in to see the doctor, contact the Emergency Department. Education Materials Tick Bite Information, Adult Ticks are insects that can bite. Most ticks live in shrubs and grassy areas. They climb onto peopleand animals that go by. Then they bite. Some ticks carry germs that can make you sick. How can I prevent tick bites? Take these steps: Use insect repellent ? Use an insect repellent that has 20% or higher of the ingredients DEET, picaridin, or [id number]. Follow the instructions on the label. Put it on: ? Bare skin. ? The tops of your boots. ? Your pant legs. ? The ends of your sleeves. ? If you use an insect repellent that has the ingredient permethrin, follow the instructions on the label. Put it on: ? Clothing. ? Boots. ? Supplies or outdoor gear. ? Tents. When you are outside ? Wear long sleeves and long pants. ? Wear light-colored clothes. ? Tuck your pant legs into your socks. ? Stay in the middle of the trail. Do not touch the bushes. ? Avoid walking through long grass. ? Check for ticks on your clothes, hair, and skin often while you are outside. Before going inside your house, check your clothes, skin, head, neck, armpits, waist, groin, and joint areas. When you go indoors ? Check your clothes for ticks. Dry your clothes in a dryer on high heat for 10 minutes or more. If clothes are damp, additional time may be needed. ? Wash your clothes right away if they need to be washed. Use hot water. ? Check your pets and outdoor gear. ? Shower right away. ? Check your body for ticks. Do a full body check using a mirror. What is the right way to remove a tick? Remove the tick from your skin as soon as possible. Do not remove the tick with your bare fingers. ? To remove a tick that is crawling on your skin: ? Go outdoors and brush the tick off. ? Use tape or a lint roller. ? To remove a tick that is bitin.?? Wash your hands. 2.?? If you have latex gloves, put them on. 3.?? Use tweezers, curved forceps, or a tick-removal tool to grasp the tick. Grasp the tick as close to your skin and as close to the tick's head as possible. 4.?? Gently pull up until the tick lets go. ? Try to keep the tick's head attached to its body. ? Do not twist or jerk the tick. ? Do not squeeze or crush the tick. Do not try to remove a tick with heat, alcohol, petroleum jelly, or fingernail vietnamese. What should I do after taking out a tick? Throw away the tick. Do not crush a tick with your fingers. ? Clean the bite area and your hands with soap and water, rubbing alcohol, or an iodine wash. ? If an antiseptic cream or ointment is available, apply a small amount to the bite area. ? Wash and disinfect any instruments that you used to remove the tick. How should I get rid of a live tick? To dispose of a live tick, use one of these methods: ? Place the tick in rubbing alcohol. ? Place the tick in a bag or container you can close tightly. ? Wrap the tick tightly in tape. ? Flush the tick down the toilet. Contact a doctor if: ? You have symptoms, such as: ? A fever or chills. ? A red rash that makes a [place]ingle [place] (bull's-eye rash) in the bite area. ? Redness and swelling where the tick bit you. ? Headache. ? Pain in a muscle, joint, or bone. ? Being more tired than normal. ? Trouble walking or moving your legs. ? Numbness in your legs. ? Tender and swollen lymph glands. ? A part of a tick breaks off and gets stuck in your skin. Get help right away if: ? You cannot remove a tick. ? You cannot move (have paralysis) or feel weak. ? You are feeling worse or have new symptoms. ? You find a tick that is biting you and filled with blood. This is important if you are in an area where diseases from ticks are common. Summary ? Ticks may carry germs that can make you sick. ? To prevent tick bites wear long sleeves, long pants, and light colors. Use insect repellent. Followthe instructions on the label. ? If the tick is biting, do not try to remove it with heat, alcohol, petroleum jelly, or fingernail vietnamese. ? Use tweezers, curved forceps, or a tick-removal tool to grasp the tick. Gently pull up until the tick lets go. Do not twist or jerk the tick. Do not squeeze or crush the tick. ? If you have symptoms, contact a doctor. This information is not intended to replace advice given to you by your health care provider. Make sure you discuss any questions you have with your health care provider. Document Revised: 01/30/2020 Document Reviewed: 01/30/2020 [employer] Patient Education ?? [employer] Tick Bite Information, Adult Ticks are insects that draw blood for food. Most ticks live in shrubs and grassy and wooded areas. They climb onto people and animals that brush against the leaves and grasses that they rest on. Thenthey bite, attaching themselves to the skin. Most ticks are harmless, but some ticks may carry germs that can spread to a person through a bite and cause a disease. To reduce your risk of getting a di sease from a tick bite, make sure you: ? Take steps to prevent tick bites. ? Check for ticks after being outdoors where ticks live. ? Watch for symptoms of disease if a tick attached to you or if you suspect a tick bite. How can I prevent tick bites? Take these steps to help prevent tick bites when you go outdoors in an area where ticks live: Use insect repellent ? Use insect repellent that has DEET (20% or higher), picaridin, or [id number] in it. Follow the instructions on the label. Use these products on: ? Bare skin. ? The top of your boots. ? Your pant legs. ? Your sleeve cuffs. ? For insect repellent that contains permethrin, follow the instructions on the label. Use these products on: ? Clothing. ? Boots. ? Outdoor gear. ? Tents. When you are outside ? Wear protective clothing. Long sleeves and long pants offer the best protection from ticks. ? Wear light-colored clothing so you can see ticks more easily. ? Tuck your pant legs into your socks. ? If you go walking on a trail, stay in the middle of the trail so your skin, hair, and clothing do not touch the bushes. ? Avoid walking through areas with long grass. ? Check for ticks on your clothing, hair, and skin often while you are outside, and check again before you go inside. Make sure to check the scalp, neck, armpits, waist, groin, and joint areas. These are the spots where ticks attach themselves most often. When you go indoors ? Check your clothing for ticks. Tumble dry clothes in a dryer on high heat for at least 10 minutes. If clothes are damp, additional time may be needed. If clothes require washing, use hot water. ? Examine gear and pets. ? Shower soon after being outdoors. ? Check your body for ticks. Conduct a full body check using a mirror. What is the proper way to remove a tick? If you find a tick on your body, remove it as soon as possible. Removing a tick sooner can prevent germs from passing to your body. Do not remove the tick with your bare fingers. To remove a tick that is crawling on your skin but has not bitten, use either of these methods: ? Go outdoors and brush the tick off. ? Remove the tick with tape or a lint roller. To remove a tick that is attached to your skin: 1.?? Wash your hands. If you have latex gloves, put them on. 2.?? Use fine-tipped tweezers, curved forceps, or a tick-removal tool to gently grasp the tick as close to your skin and the tick's head as possible. 3.?? Gently pull with a steady, upward, even pressure until the tick lets go. 4.?? When removing the tick: ? Take care to keep the tick's head attached to its body. ? Do not twist or jerk the tick. This can make the tick's head or mouth parts break off and remain inthe skin. ? Do not squeeze or crush the tick's body. This could force disease-carrying fluids from the tick into your body. Do not try to remove a tick with heat, alcohol, petroleum jelly, or fingernail vietnamese. Using these methods can cause the tick to salivate and regurgitate into your bloodstream, increasing your risk of getting a disease. What should I do after removing a tick? Dispose of the tick. Do not crush a tick with your fingers. ? Clean the bite area and your hands with soap and water, rubbing alcohol, or an iodine scrub. ? If an antiseptic cream or ointment is available, apply a small amount to the bite site. ? Wash and disinfect any instruments that you used to remove the tick. How should I dispose of a tick? To dispose of a live tick, use one of these methods: ? Place it in rubbing alcohol. ? Place it in a sealed bag or container. ? Wrap it tightly in tape. ? Flush it down the toilet. Contact a health care provider if: ? You have symptoms of a disease after a tick bite. Symptoms of a tick-borne disease can occur from moments after the tick bites to 30 days after a tick is removed. Symptoms include: ? Fever or chills. ? Any of these signs in the bite area: ? A red rash that makes a shingle springs (bull's-eye rash) in the bite area. ? Redness and swelling. ? Headache. ? Muscle, joint, or bone pain. ? Abnormal tiredness. ? Numbness in your legs or difficulty walking or moving your legs. ? Tender, swollen lymph glands. ? A part of a tick breaks off and gets stuck in your skin. Get help right away if: ? You are not able to remove a tick. ? You experience muscle weakness or paralysis. ? Your symptoms get worse or you experience new symptoms. ? You find an engorged tick on your skin and you are in an area where disease from ticks is a high risk. Summary ? Ticks may carry germs that can spread to a person through a bite and cause a disease. ? Wear protective clothing and use insect repellent to prevent tick bites. Follow the instructions onthe label. ? If you find a tick on your body, remove it as soon as possible. If the tick is attached, do not tryto remove with heat, alcohol, petroleum jelly, or fingernail vietnamese. ? Remove the attached tick using fine-tipped tweezers, curved forceps, or a tick- removal tool. Gentlypull with steady, upward, even pressure until the tick lets go. Do not twist or jerk the tick. Do not squeeze or crush the tick's body. ? If you have symptoms of a disease after being bitten by a tick, contact a health care provider. This information is not intended to replace advice given to you by your health care provider. Make sure you discuss any questions you have with your health care provider. Document Revised: 01/30/2020 Document Reviewed: 01/30/2020 Elsevier Patient Education ?? 2021 [employer] Patient/Architectural Manager Signature Patient Name:JEB REYNA I have received this information and my questions have been answered. Patient/Architectural Manager Name: Patient/Architectural Manager Signature: Relationship to Patient: Witness Name/Signature: Date: Electronically Signed on: 08/09/2022 18:48 EDTSigned by:[facility] Discharge summary * Rustam Lara: PERFORM Event Display: Discharge Note Authored Date: [id number] * Rustam Lara: PERFORM Event Display: Discharge Note Authored Date: [id number] Diagnosis: Tick bite Comment: Electronically Signed on 08/09/22 06:51 PM Rustam Lara Patient Care team information Care Team Personnel Name: Kaci Nava Position: Nurse Member Role: ED Nurse Name: Paolo Sauceda MD Position: Physician Member Role: Attending Physician Address: Address: [address] [place] [id number] Care Team Related Persons Name: RONNIE DE JESUS Address: [address], [id number]
== END ==
PROVIDERS: PCP Nurse Practitioner Family; Visit Provider Nurse Practitioner Family
DX: M17.12 Unilateral primary osteoarthritis, left knee
CPT/HCPCS: 73562

== ENCOUNTER 2023-05-19 16:21 | Outpatient (REF) | payer MEDICARE, SELFPAY ==
[2023-05-19 20:57] LABS: ALT 26 U/L (16-63); AST 16 U/L (15-37); Alkaline Phosphatase 75 U/L (46-116); Anion Gap 9.7 mmol/L (3-11); BUN 20 mg/dL (7-18); CO2 28.3 mmol/L (21.0-32.0); CREATININE 1.1 mg/dL (0.70-1.30); Calcium 9.7 mg/dL (8.5-10.1); Calculated LDL 95 mg/dL (<100); Chloride 103 mmol/L (98-107); Cholesterol 177 mg/dL (<200); Estimated GFR 66.19 (mL/min/1.73m2); Glucose 159 mg/dL (74-106); HDL Cholesterol 61 mg/dL (40-60); Potassium 4.3 mmol/L (3.5-5.1); Sodium 141 mmol/L (136-145); Total Protein 6.9 g/dL (6.4-8.2); Triglyceride 106 mg/dL (<150)
== END 2023-05-19 16:22 | disposition home or self-care (01) ==
LOC: LBN 16:21
PROVIDERS: PCP Nurse Practitioner Family; Visit Provider Nurse Practitioner Family
DX: E11.69 Type 2 diabetes mellitus with other specified complication (principal); E78.5 Hyperlipidemia, unspecified
CPT/HCPCS: 80053; 80061

== ENCOUNTER 2024-04-13 12:06 | Emergency (ER) | payer MEDICARE, SELFPAY ==
--- NOTE | 2024-04-13 12:15 | RT.EKG_ITS ---
APPROVED REPORT Exam: Resting ECG Reason for Exam: Tachycardia Patient Location: E HR:97 bpm ECG Measurements Heart Rate 97 AXIS MI 181 P 267 QRSd 132 QRS -11 QT 374 T -72 QTc 477 Conclusion Atrial flutter, v-rate 97, new from priors ST depression V4, V5 No STEMI
[2024-04-13 12:24] VITALS: BP 120/80; PULSE 146; RESP 16; TEMP 36.6; O2SAT 95
--- NOTE | 2024-04-13 12:32 | ED.GENADUL_ITS ---
Discharge Plan Disposition Patient Disposition: Home Discharge Details Clinical Impression: Atrial flutter, Hand injury Primary Care Provider: Bean Joshua ED Provider: Blanche Payan Home Meds and New Rx's Prescriptions: New metoprolol tartrate 25 mg tablet 25 mg PO BID Qty: 30 0RF Eliquis 5 mg tablet 5 mg PO BID Qty: 60 0RF Continued acetaminophen 500 mg capsule 1,000 mg PO TID PRN PRN (Reason: pain) Qty: 90 0RF diclofenac sodium [Arthritis Pain (diclofenac)] 1 % gel 2 g topical QID Qty: 100 0RF Rx Instructions: apply to area of discomfort on left knee atorvastatin [Lipitor] 10 mg tablet 10 mg PO HS Qty: 90 4RF Discontinued aspirin [Aspirin Low-Strength] 81 MG tablet,chewable 81 mg PO DAILY metoprolol tartrate 25 mg tablet See Rx Instructions .ROUTE .COMPLEX Qty: 90 4RF Dose Instruction: TAKE 1/2 TABLET BY MOUTH TWICE A DAY Rx Instructions: TAKE 1/2 TABLET BY MOUTH TWICE A DAY Discharge Instructions Instructions: Atrial Fibrillation and Atrial Flutter ED Additional Instructions: You have an appointment at [facility] on April 21 at 11:20 AM. Please check in at for a cardiology at 11:10 AM. This is at the main [facility] in [facility] ([address]) Please call [facility] to set up a follow-up appointment with your PCP next week. You are being prescribed an anticoagulant to prevent stroke. Please take as prescribed. You are also having your dose of metoprolol increased to 125 mg tablet twice a day. Please take 12 hours apart. Stop taking your aspirin. Your x-ray was negative, there is no sign of fracture in your hand. I recommend that you rest your hand. Apply ice for 15 to 20 minutes at a time to help with swelling/discomfort. Elevate above heart level. You may use an Brent bandage as needed, but I recommend you maintain use of your hand so it does not grow weak. Return to emergency care if you develop new chest pains, difficulty breathing, dizziness, blood in your stool/black/tarry stools, experience any head injury or other injuries/falls, have nosebleeds that are not stopping easily, or if you are very worried and need to be rechecked again immediately. Referrals: Bean Joshua NP [Primary Care Provider] - [facility] General Date/Time Provider Initiated Documentation: 04/13/24 12:16 . [facility] Narrative: Justin is a 83year old male who presents to the emergency department today for evaluation of left hand/wrist pain. He reports that he slipped on the ice, landed on his outstretched hand, also landed on his left hip. He reports that his hip is feeling better, thinks it is sore because he fell on his can of chew in the pocket. Is able to ambulate without difficulty; can move leg without problem. Denies distal numbness/tingling to hand or difficulty using the hand. There is a bruise on the palm. Denies head injury, neck or back pain, other injuries. His heart rate was noted on pulse ox to be 146, denies palpitations, chest pain, shortness of breath, dizziness, or other symptoms. He reports he has recently been in good health, denies fever/chills, congestion, sore throat, cough, chest pains, abdominal pain, nausea/vomiting, change in bowel or bladder function. Does occasionally feel like he has to urinate but then is unable to, but denies dysuria or other abnormalities. I was able to obtain additional history from , she is reports right has had decreased appetite for the last couple of months, same as stomach is bothering him. No other specific com plaints. Past medical history is significant for T2DM, HLD, bilateral carotid artery stenosis, and CVA in 2010. He does chew tobacco and occasionally smokes cigars. No history of GI bleed. Physical exam remarkable for ecchymosis to the proximal palm of hand. No lacerations/abrasions or skin tears. 5 out of 5 muscle strength to fingers. Diffuse tenderness to wrist. Painless range of motion to elbow. No pain with palpation of left hip, is able to fully flex and extend the hip and ambulate without difficulty. Murmur noted at the right sternal border, tachycardia noted. Easy work of breathing, lung sounds clear bilaterally. No JVD or pedal edema. Distal pulses intact bilaterally. D/dx includes but is not limited to: Aortic stenosis, valvular dysfunction, electrolyte imbalance, new onset A-fib. Left wrist pain concerning for fracture, though sprain or other soft tissue injury are in differential. I independently interpreted the following tests: Left wrist x-ray negative for fracture, this was confirmed by radiologist. No acute abnormalities noted on chest x-ray, this was confirmed by radiologist as well. CBC notable for mild leukocytosis, white cell count 11.07. CMP largely reassuring, mildly elevated total bilirubin 1.30 (other LFTs within normal range). Initial troponin 19, followed by 18. EKG shows a-flutter with rate 97, normal intervals, no changes consistent with acute ischemia. Discussed case with Philip Claros NP at [facility] [place]. She recommends increasing metoprolol to 25 mg twice daily if heart rate elevates above 100 while ambulating. Also recommends Eliquis, as patient has [id number] score shows elevated risk benefiting from anticoagulation, has-bled score is moderate. Patient does not have history of prior GI bleed, liver dysfunction, frequent falls, or intracranial hemorrhage. Discussed risk versus benefits of anticoagulation with Justin and his , they are agreeable with plan to anticoagulate for stroke prevention. Arrangement was made for [facility] [place]up on April 21. Outpatient echo ordered at [facility] for patient as well; echo was next available on Thursday. During ambulatory trial Justin's heart rate spiked to the 140s to 150s, return to 80s at rest. While in the emergency department, Justin received first dose of anticoagulation and a.m. dose of metoprolol. Overall workup today significant for new onset a flutter. Wrist x-ray negative, likely sprain/soft tissue injury Reviewed discharge instructions with patient, including symptomatic management, risk associated with anticoagulation, follow-up instructions including outpatient echo and cardiology follow-up, and red flags indicating need for return to emergency care Related Data Home Medications ?Medication ?Instructions ?Recorded ?Confirmed acetaminophen 500 mg capsule 1,000 mg (2 x 500 mg) PO TID PRN 10/25/18 04/13/24 PRN pain #90 caps diclofenac sodium 1 % topical gel 2 g topical QID #100 grams 08/18/23 04/13/24 (Arthritis Pain (diclofenac)) atorvastatin 10 mg tablet (Lipitor) 10 mg PO HS #90 tab-caps 03/11/24 04/13/24 apixaban 5 mg tablet (Eliquis) 5 mg PO BID #60 tabs 04/13/24 metoprolol tartrate 25 mg tablet 25 mg PO BID #30 tabs 04/13/24 Previous Rx's ?Medication ?Instructions ?Recorded acetaminophen 500 mg capsule 1,000 mg (2 x 500 mg) PO TID PRN 10/25/18 PRN pain #90 caps diclofenac sodium 1 % topical gel 2 g topical QID #100 grams 08/18/23 (Arthritis Pain (diclofenac)) atorvastatin 10 mg tablet (Lipitor) 10 mg PO HS #90 tab-caps 03/11/24 apixaban 5 mg tablet (Eliquis) 5 mg PO BID #60 tabs 04/13/24 metoprolol tartrate 25 mg tablet 25 mg PO BID #30 tabs 04/13/24 Allergies Allergy/AdvReac Type Severity Reaction Status Date / Time No Known Allergies Allergy Verified 04/13/24 12:30 General Stated Complaint: Orthopedic BRIAN: 3 Review of Systems Narrative: See HPI Exam Const General: cooperative, healthy appearing, comfortable, no acute distress and well developed Nutritional Appearance: average body habitus and well nourished Orientation: alert and oriented x3 Resp Effort & Inspection: normal respiratory effort and able to speak in complete sentences Auscultation: clear to auscultation bilaterally Cardio Rate: regular rate Rhythm: regular rhythm Extrem General: normal to inspection and no pedal edema Left upper extremity: wrist Details: tenderness (diffuse) and abnormal ROM Details: held in an abnormal fashion Details: in extension and pain with active ROM Details: with flexion; no swelling, no unusual warmth, no abrasions, no lacerations and no deformity and hand Details: ecchymosis Location: of the palm Location: centrally Course Vital Signs Vital signs: Vital Signs Temperature 36.6 C 04/13/24 12:24 Pulse 146 H 04/13/24 12:24 Respiratory Rate 16 04/13/24 12:24 Blood Pressure 120/80 04/13/24 12:24 Pulse Oximetry 95 04/13/24 12:24 Temperature 36.6 C 04/13/24 12:24 Temperature Source Oral 04/13/24 12:24 Pulse 146 H 04/13/24 12:24 Respiratory Rate 16 04/13/24 12:24 Blood Pressure 120/80 04/13/24 12:24 Blood Pressure Position Sitting 04/13/24 12:24 Pulse Oximetry 95 04/13/24 12:24 Oxygen Delivery Method Room Air 04/13/24 12:24 Oxygen Flow Rate 0 04/13/24 12:24 Pain Level 3 04/13/24 12:24 Medical Decision Making Imaging Data Radiologic Study: Radiologist's impression: Exam(s) XR HAND LT COMPLETE XR WRIST LT COMPLETE EXAM: XR HAND LT COMPLETE and XR wrist LT complete CLINICAL HISTORY: FOOSH, bruise on hand. TECHNIQUE: 2D digital imaging was performed of the left wrist and hand. Six views were obtained. AP, lateral and oblique views were obtained. COMPARISON: There are no priors for comparison. FINDINGS: BONES: No acute fracture is present. No bony destructive lesion is seen. JOINTS: No dislocation present. Age-appropriate degenerative changes are seen in the hand and wrist. SOFT TISSUE: Dystrophic calcifications are seen in the soft tissues. Well corticated osseous density is seen posteriorly consistent with old injury. IMPRESSION: No acute fracture or dislocation. Radiologic Study #2: Radiologist's impression: Exam(s) XR HAND LT COMPLETE XR WRIST LT COMPLETE EXAM: XR HAND LT COMPLETE and XR wrist LT complete CLINICAL HISTORY: FOOSH, bruise on hand. TECHNIQUE: 2D digital imaging was performed of the left wrist and hand. Six views were obtained. AP, lateral and oblique views were obtained. COMPARISON: There are no priors for comparison. FINDINGS: BONES: No acute fracture is present. No bony destructive lesion is seen. JOINTS: No dislocation present. Age-appropriate degenerative changes are seen in the hand and wrist. SOFT TISSUE: Dystrophic calcifications are seen in the soft tissues. Well corticated osseous density is seen posteriorly consistent with old injury. IMPRESSION: No acute fracture or dislocation. Radiologic Study #3: Radiologist's impression: Exam(s) XR CHEST 2V PA LATERAL EXAM: XR CHEST 2V PA LATERAL CLINICAL HISTORY: new onset aflutter TECHNIQUE: 2D digital imaging was performed of the chest. Two images were obtained. PA and lateral views were obtained. COMPARISON: CR XR RIBS LT W PA LAT CHEST from 03/05/2021 FINDINGS: MEDIASTINUM: Normal. HEART: Normal. PULMONARY VASCULATURE: Normal. LUNGS: The lungs are hyperinflated suggesting underlying COPD. No focal consolidating infiltrates are present. PLEURAL SPACE: No pleural effusion or pneumothorax. BONE:Within normal limits for the patient's age. There are old left rib fracture deformities again seen. OTHER FINDINGS:Surgical clips are seen in the right upper quadrant of the abdomen. IMPRESSION: No acute pulmonary findings. 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 Has forms - encouraged to f/u Elevated blood pressure reading (Acute) Ankle ankylosis (Acute) Diabetes mellitus (Chronic 02/02/12) Hearing loss (Chronic) History of tobacco use (Chronic) Chews daily, occasional cigar Hyperlipidemia associated with type 2 diabetes mellitus (Chronic 07/10/15) Medical History Dizziness Bradycardia with 31-40 beats per minute Chemical dermatitis Carotid artery disease (12/14/13) 01/23/2011: right CEA TIA 06/2019 LEFT artery stenosis w/vision changes Dermatitis associated with moisture (09/14/17) Migraine Peptic ulcer H/O perforated ulcer; secondary to ASA Surgical History S/P carotid endarterectomy History of open reduction and internal fixation (ORIF) procedure Family History Mother , 79 Diabetes Essential hypertension Cancer Stroke Father , 79 Cancer Sister , 84 Cancer Diabetes Sister , 72 Heart disease Cancer Social History Smoking/Tobacco Use Status: Former Tobacco Use Smoking risk assessment performed?: Yes Alcohol Intake: former Drug use: Never Substance use type: does not use Counseling given: No Counseling provided: none Caregiver/Support person: No Household members: spouse Communication Needs: Hard of Hearing Pets and animals: Yes Pets and animals: cat(s) Sexually active: No Do you think of yourself as: straight/heterosexual Current gender identity: male What is your relationship status?: How often do you talk on the phone with friends or family?: twice per week How often do you get together with friends or relatives?: three or more times per week How often do you attend sikhism or scientologist services?: decline to answer Do you belong to any clubs or organized social groups?: no Panel score (0-1 are the most socially isolated patients): 2 What type of physical activity do you participate in: walking Duration: 60-90 minutes/day Frequency: 5-6 times per week Maryse/Methodist: No preference Special maryse needs: No Seatbelt use: sometimes Helmet use: Yes Helmet use: always Drive intox or ride w/intox hazmat cdl a driver: No Do you feel safe at home: Yes Do you feel safe in your relationship?: Yes
--- NOTE | 2024-04-13 13:00 | DI.RAD_ITS ---
Exam(s) XR CHEST 2V PA LATERAL EXAM: XR CHEST 2V PA LATERAL CLINICAL HISTORY: new onset aflutter TECHNIQUE: 2D digital imaging was performed of the chest. Two images were obtained. PA and lateral views were obtained. COMPARISON: CR XR RIBS LT W PA LAT CHEST from 03/05/2021 FINDINGS: MEDIASTINUM: Normal. HEART: Normal. PULMONARY VASCULATURE: Normal. LUNGS: The lungs are hyperinflated suggesting underlying COPD. No focal consolidating infiltrates ar e present. PLEURAL SPACE: No pleural effusion or pneumothorax. BONE:Within normal limits for the patient's age. There are old left rib fracture deformities again s een. OTHER FINDINGS:Surgical clips are seen in the right upper quadrant of the abdomen. IMPRESSION: No acute pulmonary findings. DATA REPOSITORY: RADIATION DOSE DELIVERED:
[2024-04-13 13:36] LABS: Abs Immature Grans 0.03 10^3/uL (0.0-0.06); Absolute Eosinophil Count 0.14 10^3/uL (0.0-0.7); Absolute Lymphocyte Count 0.93 10^3/uL (1.2-3.4); Absolute Monocyte Count 1.07 10^3/uL (0.1-0.8); Basophils % 0.5 %; Eosinophils % 1.3 %; HCT 45.4 % (40.0-50.0); HGB 14.8 g/dL (13.5-17.5); Immature Grans % 0.3 %; Lymphocytes % 8.4 %; MCH 30.3 pg (27.0-33.0); MCHC 32.6 % (32.0-36.0); MCV 93 fL (80-95); MPV 9.2 fL (8.0-11.0); Monocytes % 9.7 %; Neutrophils % 79.8 %; Platelet Count 300 10^3/uL (130-400); RBC 4.89 10^6/uL (4.36-5.78); RDW 13.3 % (11.8-14.1); RDW-SD 45.8 fL; WBC 11.07 10^3/uL (4.4-10.8)
[2024-04-13 13:40] LABS: Absolute Basophil Count 0.06 10^3/uL (0.0-0.2); Absolute Neutrophil Count 8.83 10^3/uL (1.2-6.7)
[2024-04-13 13:54] LABS: ALT 32 U/L (16-63); AST 21 U/L (15-37); Alkaline Phosphatase 75 U/L (46-116); Anion Gap 7.6 mmol/L (3-11); BUN 24 mg/dL (7-18); CO2 29.4 mmol/L (21.0-32.0); CREATININE 1.2 mg/dL (0.70-1.30); Calcium 9.6 mg/dL (8.5-10.1); Chloride 106 mmol/L (98-107); Estimated GFR 59.26 (mL/min/1.73m2); Glucose 171 mg/dL (74-106); Magnesium 2.2 mg/dL (1.8-2.4); Sodium 143 mmol/L (136-145); Total Protein 7.2 g/dL (6.4-8.2); Troponin I 19 ng/L (<or=76)
[2024-04-13 14:07] LABS: PTT Activated 24.1 sec (20.6-30.2); Prothrombin Time 10.3 sec (9.1-11.1)
[2024-04-13 14:42] VITALS: BP 169/103; PULSE 89; RESP 16; O2SAT 96
--- NOTE | 2024-04-13 14:45 | RT.EKG_ITS ---
APPROVED REPORT Exam: Resting ECG Reason for Exam: A Flutter Patient Location: E HR:59 bpm ECG Measurements Heart Rate 59 AXIS IN [id number] P [id number] QRSd 90 QRS 39 QT 412 T 34 QTc 409 Conclusion Atrial flutter, v-rate 59 No STEMI Compared to priors, rate has decreased
[2024-04-13 15:13] LABS: Troponin I 18 ng/L (<or=76)
[2024-04-13 15:25] LABS: Bilirubin Negative (Negative); Blood Negative (Negative); Clarity Clear (Clear); Glucose 250 mg/dL (Negative); Ketones Negative (Negative); Leukocyte Esterase Negative (Negative); Nitrite Negative (Negative); Specific Gravity >= 1.030 (1.005-1.025); Urobilinogen 0.2 mg/dL (Up to 0.2)
[2024-04-13] MEDS: Metoprolol 25 MG TAB PO (15:46)
[2024-04-13] MEDS: Apixaban 5 MG TAB PO (15:46)
[2024-04-13 15:47] LABS: Bacteria Negative HPF (Negative); C & S Indicated? No; Casts 0-2 Hyaline LPF (Negative); Crystals Negative HPF (Negative); Epithelial Cells Rare HPF (Negative); Mucus Trace (Negative); RBC Negative HPF (0-2); WBC Negative HPF (0-5)
[2024-04-13 15:48] VITALS: BP 138/84; PULSE 92; RESP 17; O2SAT 97
== END 2024-04-13 15:59 | disposition home or self-care (01) ==
PROVIDERS: Emergency Provider Nurse Practitioner Family; PCP Nurse Practitioner Family
DX: S69.82XA Other specified injuries of left wrist, hand and finger(s), initial encounter (principal); I48.92 Unspecified atrial flutter; I25.10 Atherosclerotic heart disease of native coronary artery without angina pectoris; E11.9 Type 2 diabetes mellitus without complications; E78.5 Hyperlipidemia, unspecified; F17.220 Nicotine dependence, chewing tobacco, uncomplicated; Z86.73 Personal history of transient ischemic attack (TIA), and cerebral infarction without residual deficits; Z79.82 Long term (current) use of aspirin; W00.0XXA Fall on same level due to ice and snow, initial encounter; Y93.01 Activity, walking, marching and hiking
CPT/HCPCS: 36415; 80053; 93005; 99284; 71046; 73110; 73130; 81003; 81015; 83735; 84484; 85025; 85610; 85730; 93010

== ENCOUNTER 2024-05-24 21:23 | Outpatient (REF) | payer MEDICARE, SELFPAY ==
[2024-05-24 21:50] LABS: Hemoglobin A1C 7.4 % (<5.7)
[2024-05-24 21:52] LABS: Calculated LDL 79 mg/dL (<100); Cholesterol 146 mg/dL (<200); HDL Cholesterol 52 mg/dL (>or=40); Triglyceride 78 mg/dL (<150)
== END 2024-05-24 21:24 | disposition home or self-care (01) ==
LOC: LBN 21:23
PROVIDERS: PCP Nurse Practitioner Family; Visit Provider Nurse Practitioner Family
DX: E11.69 Type 2 diabetes mellitus with other specified complication (principal); E78.5 Hyperlipidemia, unspecified; E11.9 Type 2 diabetes mellitus without complications
CPT/HCPCS: 80061; 83036

== ENCOUNTER 2024-06-13 10:08 | Emergency (ER) | payer MEDICARE, SELFPAY ==
[2024-06-13 10:18] VITALS: BP 119/83; PULSE 95; RESP 20; TEMP 36.1; O2SAT 99
--- NOTE | 2024-06-13 10:47 | ED.GENADUL_ITS ---
Discharge Plan Disposition Patient Disposition: Home Discharge Details Clinical Impression: Hx of epistaxis Primary Care Provider: Bean Joshua ED Provider: Blanche Payan Home Meds and New Rx's Prescriptions: Discontinued Eliquis 5 mg tablet 5 mg PO BID Qty: 60 0RF No Action acetaminophen 500 mg capsule 1,000 mg PO TID PRN PRN (Reason: pain) Qty: 90 0RF metoprolol tartrate 25 mg tablet 25 mg PO BID Qty: 180 3RF atorvastatin [Lipitor] 10 mg tablet 10 mg PO HS Qty: 90 4RF Discharge Instructions Instructions: Nosebleeds ED Additional Instructions: Please call your primary care provider to schedule an ED follow-up visit. I also recommend following up with cardiology as discussed. Please sign up for the [facility] and [facility] portals, as this give you access to your records and allows you to message with your providers. Please do not blow your nose or pick nose for the next 3 days. You may gently dab at your nose. You may use saline nasal spray and/or saline gel to help keep your nasal passages moisturized. I recommend use of humidifier at home as well. As discussed, you are going to stop your Eliquis until you are evaluated by your PCP/ENT. Note that this does increase your risk for stroke, but does reduce yo ur risk for severe bleeding events as well. Return to emergency care if you develop new severe nosebleeds, dizziness, chest pains, feeling like you are going to pass out, or if you are very worried and need to be rechecked again immediately Referrals: Bean Joshua, [facility] [Primary Care Provider] - Discharge Data Discharge Date/Time-TO BE ENTERED AT DEPARTURE: 06/13/24 11:33 HPI General Date/Time Provider Initiated Documentation: 06/13/24 10:24 . HPI Narrative: Justin is a 83 year old male who presents to the emergency department today for evaluation of removal of Rhino Rocket. He reports that 3 days ago he sustained his third nosebleed in the last 2 weeks in the right nare, had a Rhino Rocket placed. He called ENT, but was informed that he needed to have this removed by the emergency department. He reports he has overall been feeling well, has been taking Augmentin for sinusitis as prescribed. Denies headache, dizziness, posterior nosebleed/bleeding in his throat, chest pain, shortness of breath, nausea/vomiting. Has been taking p.o. as usual. He does take Eliquis for a flutter, has not been taking it since Thursday.. Past medical history is significant for a flutter on anticoagulation, DM, HLD, tobacco chew use. Physical exam reassuring. Justin is alert and oriented, no acute distress. Rhino Rocket was able to be removed after instillation with normal saline; as Justin had already cut the inflation tube, Rhino Rocket had already deflated. No bleeding after nasal packing removed. I did review ED visit notes from [facility] ED, pt had reassuring workup at initial presentation for epistaxis. Discussed case with Bean Acevedo [facility], patient's PCP re: PCP f/u, ENT referral, and recommendations re: continuing eliquis. Reviewed risks versus benefits of continuing Eliquis for a flutter with patient and his ; based on [id number] score patient has a 4% chance of stroke without anticoagulation. Patient has had frequent severe nosebleeds, they would like to continue holding Eliquis until evaluation by ENT to see if there is any structural component to nosebleeds that can be corrected. Overall workup today reassuring, no complications with Rhino Rocket removal. No red flags concerning for acute bacterial process or complications associated with nasal packing. Patient is being treated for sinusitis, will continue Augmentin as prescribed. Reviewed discharge instructions with patient, including symptomatic management, care after Rhino Rocket removal, and red flags indicating need for return to emergency care. Encouraged him to set up portal access to [facility] and [facility]. Related Data Home Medications ?Medication ?Instructions ?Recorded ?Confirmed acetaminophen 500 mg capsule 1,000 mg (2 x 500 mg) PO TID PRN 10/25/18 06/13/24 PRN pain #90 caps atorvastatin 10 mg tablet (Lipitor) 10 mg PO HS #90 tab-caps 03/11/24 06/13/24 metoprolol tartrate 25 mg tablet 25 mg PO BID #180 tabs 06/08/24 06/13/24 Previous Rx's ?Medication ?Instructions ?Recorded acetaminophen 500 mg capsule 1,000 mg (2 x 500 mg) PO TID PRN 10/25/18 PRN pain #90 caps atorvastatin 10 mg tablet (Lipitor) 10 mg PO HS #90 tab-caps 03/11/24 metoprolol tartrate 25 mg tablet 25 mg PO BID #180 tabs 06/08/24 Allergies Allergy/AdvReac Type Severity Reaction Status Date / Time No Known Allergies Allergy Verified 06/13/24 10:23 General Stated Complaint: Epistaxis BRIAN: 4 Review of Systems Narrative: see HPI Exam Const General: cooperative, healthy appearing, comfortable, no acute distress, well developed and well groomed Nutritional Appearance: average body habitus and well nourished Orientation: alert and oriented x3 HENMT Head: normal to inspection Ears: hearing grossly normal bilaterally General nose exam: external nose normal, nasal mucous membranes and turbinates normal, septum normal and other (rhino rocket in place to R nare, no active bleeding after removal) Face and sinus: normal facial exam Mouth: oral mucosae normal Neck Neck: normal visual inspection Resp Effort & Inspection: normal respiratory effort and able to speak in complete sentences Auscultation: clear to auscultation bilaterally Cardio Rate: regular rate Rhythm: regular rhythm Neuro General: patient alert, gait normal and tone normal Cranial Nerves: facial strength normal Course Vital Signs Vital signs: Vital Signs Temperature 36.1 C L 06/13/24 10:18 Pulse 95 H 06/13/24 10:18 Respiratory Rate 20 06/13/24 10:18 Blood Pressure 119/83 06/13/24 10:18 Pulse Oximetry 99 06/13/24 10:18 Temperature 36.1 C L 06/13/24 10:18 Pulse 95 H 06/13/24 10:18 Respiratory Rate 20 06/13/24 10:18 Blood Pressure 119/83 06/13/24 10:18 Blood Pressure Position Sitting 06/13/24 10:18 Pulse Oximetry 99 06/13/24 10:18 Oxygen Delivery Method Room Air 06/13/24 10:18 Oxygen Flow Rate 0 06/13/24 10:18 Medical Decision Making Quality:SDOH Health Related Social Needs: No Data to Display PFSH All Active Problems (Updated 06/13/24 @ 11:22 by Blanche Lilly) Hx of epistaxis (Acute) Atrial flutter (Chronic 03/2024) [place] to be chronic, followed at [facility] cardiology Left knee pain (Acute) Impacted cerumen of right ear (Acute) Memory impairment (Acute) Actinic keratoses (Acute) 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 Has forms - encouraged to f/u Elevated blood pressure reading (Acute) Ankle ankylosis (Acute) Diabetes mellitus (Chronic 02/02/12) Hearing loss (Chronic) History of tobacco use (Chronic) Chews daily, occasional cigar Hyperlipidemia associated with type 2 diabetes mellitus (Chronic 07/10/15) Medical History Dizziness Bradycardia with 31-40 beats per minute Chemical dermatitis Carotid artery disease (12/14/13) 01/23/2011: right CEA TIA 06/2019 LEFT artery stenosis w/vision changes Dermatitis associated with moisture (09/14/17) Migraine Peptic ulcer H/O perforated ulcer; secondary to ASA Surgical History S/P carotid endarterectomy History of open reduction and internal fixation (ORIF) procedure Family History Mother , 79 Diabetes Essential hypertension Cancer Stroke Father , 79 Cancer Sister , 84 Cancer Diabetes Sister , 72 Heart disease Cancer Social History Smoking/Tobacco Use Status: Former Tobacco Use Smoking risk assessment performed?: Yes Alcohol Intake: former Drug use: Never Substance use type: does not use Counseling given: No Counseling provided: none Caregiver/Support person: No Household members: spouse Communication Needs: Hard of Hearing Pets and animals: Yes Pets and animals: cat(s) Sexually active: No Do you think of yourself as: straight/heterosexual Current gender identity: male What is your relationship status?: How often do you talk on the phone with friends or family?: twice per week How often do you get together with friends or relatives?: three or more times per week How often do you attend evangelical or mormonism services?: decline to answer Do you belong to any clubs or organized social groups?: no Panel score (0-1 are the most socially isolated patients): 2 What type of physical activity do you participate in: walking Duration: 60-90 minutes/day Frequency: 5-6 times per week Maryse/Confucianism: No preference Special maryse needs: No Seatbelt use: sometimes Helmet use: Yes Helmet use: always Drive intox or ride w/intox bellman driver: No Do you feel safe at home: Yes Do you feel safe in your relationship?: Yes
[2024-06-13 11:23] VITALS: BP 126/78; PULSE 76; RESP 12; TEMP 36.6; O2SAT 95
== END 2024-06-13 11:33 | disposition home or self-care (01) ==
PROVIDERS: Emergency Provider Nurse Practitioner Family; PCP Nurse Practitioner Family
DX: R04.0 Epistaxis (principal)
CPT/HCPCS: 99283; 99282

== ENCOUNTER 2024-11-25 15:06 | Outpatient (REF) | payer MEDICARE, SELFPAY ==
[2024-11-25 16:31] LABS: TSH (W/Ref FT4) 3.08 uIU/mL (0.36-3.74); Vitamin B12 469 pg/mL (193-986)
[2024-11-28 09:02] LABS: Syphilis Serology (RPR) Negative (Negative)
[2024-11-28 09:39] LABS: PSA, Diagnostic 7.9 ng/mL (<=6.5)
== END 2024-11-25 15:07 | disposition home or self-care (01) ==
LOC: LBN 15:06
PROVIDERS: PCP Nurse Practitioner Family; Visit Provider Nurse Practitioner Family
DX: R41.3 Other amnesia (principal); R39.15 Urgency of urination; R39.12 Poor urinary stream; R20.2 Paresthesia of skin
CPT/HCPCS: 82607; 84153; 84443; 86592